=== PATIENT | male | born 1945 | race Caucasian/White ===

== ENCOUNTER 2016-12-15 08:52 | Emergency (ER) | payer MEDICARE, OTHER ==
[~2016-12-15] VITALS: Ht 172.7 cm; Wt 86.5 kg
[~2016-12-15 08:52] MED LIST: ASPI81 PO; GEMF600T PO; GLIP5 PO; LANTINJ SQ; LISI-366 PO; SYMB160A INH
[2016-12-15 09:05] VITALS: BP 144/76; PULSE 77; RESP 16; TEMP 97.7; O2SAT 94
[2016-12-15] MEDS ORDERED: ASPI1TAB69 PO (09:20)
[2016-12-15] MEDS ORDERED: LISI40TA PO (09:20)
[2016-12-15] MEDS ORDERED: GEMF600T PO (09:20)
[2016-12-15] MEDS ORDERED: LANTUS2P SQ (09:20)
[2016-12-15] MEDS ORDERED: GLIP5TAB8 PO (09:20)
[2016-12-15] MEDS ORDERED: SYMB160A INH (09:20)
--- NOTE | 2016-12-15 09:21 | PD ---
HPI Chief Complaint: Laceration/Skin Injury Time Seen by Provider: 09:16 Travel History International Travel<30 days: No Contact w/Intl Traveler<30days: No Traveled to known affect area: No History of Present Illness HPI The patient is a 71-year-old male who presents to the emergency department for laceration to the right hand. The patient states she suffered a laceration to the volar aspect of the right hand between the thumb and second digit on a square nut. The patient states the laceration bled initially, however, is currently stopped. The patient's last tetanus shot was 3 years ago after another laceration. The patient denies any weakness or numbness of the right hand. The patient is right-hand dominant. The patient denies any difficulty using the thumb or second digit of the right hand. PFSH Past Medical History Asthma: Yes Blood Disorders: No Anxiety: Yes Depression: No Cancer: No Cardiac Catheterization: Yes Cardiovascular Problems: Yes High Cholesterol: Yes Coronary Artery Disease: Yes Diabetes: Yes Diminished Hearing: Yes (MARGIE HEARING AIDS) Endocrine: Yes Genitourinary: No Hypertension: Yes Immune Disorder: No Musculoskeletal: Yes (POLIO) Neurologic: No Psychiatric: No Reproductive: No Immunizations Current: No Past Surgical History Cardiac Surgery: Yes (CABG) Coronary Artery Bypass Graft: Yes (3 VESSEL) Endocrine Surgery: Yes (TONSILECTOMY) Tonsillectomy: Yes Social History Alcohol Use: Yes (OCCASSIONAL (05/23/16)) Tobacco Use: No Substance Use: No Allergies-Medications (Allergen,Severity, Reaction): Uncoded Allergies: ACETONE (Adverse Reaction, Severe, HIVES, 10/24/12) Reported Meds & Prescriptions Reported Meds & Active Scripts Active Reported Lisinopril 40 Mg Tab 40 Mg PO DAILY Lantus Inj (Insulin Glargine) 1,000 Unit/10 Ml Vial 50 Units SQ HS Glipizide 5 Mg Tab 5 Mg PO BIDPC Take 30 minutes before a meal Gemfibrozil 600 Mg Tab 600 Mg PO BIDAC Take 30 minutes prior to breakfast and dinner. Symbicort Inh (Budesonide/Formoterol Fumarate) 160-4.5 Mcg/Act Aero 2 Puff INH BID Aspirin 81 Mg Tabdr 81 Mg PO DAILY Review of Systems Musculoskeletal: Positive: Pain Skin: Positive Other (as noted in the history of present illness) Neurologic: No: Paresthesia, Sensory Disturbance Physical Exam Narrative GENERAL: Awake, alert, pleasant 71-year-old male who appears his stated age and is in no acute respiratory distress. SKIN: Focused skin assessment warm/dry. 2.5 cm V-shaped laceration of volar aspect of the right hand between the thumb and second digit. HEAD: Atraumatic. Normocephalic. EYES: No injection or drainage. MUSCULOSKELETAL: 2.5 cm V-shaped laceration of volar aspect the right hand between the thumb and second digit. No active bleeding. No visible tendon or ligament involvement. The patient is able fully flex and extend the thumb as well as abduct abduct and oppose. The patient is able fully flex the second digit of the right hand at the MCP, PIP, DIP. Positive right radial pulse.. NEUROLOGICAL: Awake and alert. No obvious cranial nerve deficits. Motor grossly within normal limits. Normal speech. Sensation is intact to the radial and ulnar aspect of the first and second digit of the right hand. PSYCHIATRIC: Appropriate mood and affect; insight and judgment normal. Data Data Last Documented VS Vital Signs Date Time Temp Pulse Resp B/P Pulse Ox O2 Delivery O2 Flow Rate FiO2 12/15/16 09:05 97.7 77 16 144/76 94 Orders Lidocai-Epi 1%-1:100,000 Inj (Xylocaine- (12/15/16 09:30) MDM Medical Decision Making Medical Screen Exam Complete: Yes Emergency Medical Condition: Yes Medical Record Reviewed: Yes Differential Diagnosis Differential diagnosis includes laceration, puncture wound, abrasion, tendon laceration, ligament laceration. Narrative Course The patient's tetanus shot is up-to-date per the patient 3 years ago. The patient's laceration was draped and prepped in a normal sterile fashion, anesthetized 1% lidocaine with epinephrine using a 27-gauge needle, irrigated copiously with saline, and sutured in a single layer fashion. The patient then had Polysporin and a dry sterile dressing applied. The patient was provided wound care instructions including clean the area twice a day with soap and water , apply Polysporin, and keep the area clean and dry. Keflex as directed. Suture removal in 10 days. Monitor for signs of infection return sooner if symptoms appear including erythema, edema, purulent drainage, or fever. Procedures Procedure Narrative LACERATION LOCATION: Right hand LENGTH: 2.5 cm NUMBER OF STITCHES/OLMAN: 5 REPAIR: The area of the laceration was prepped with Betadine and sterilely draped. The laceration was infiltrated with 1% lidocaine with epinephrine using a 27-gauge needle. The wound was copiously irrigated and explored without evidence of foreign body, tendon injury or neurovascular injury. The wound was closed using 4-0 nylon. This was a single layer repair. A sterile dressing was applied. The patient was advised to keep the dressing clean and dry. Patient tolerated the procedure well. Diagnosis Primary Impression: Laceration of right hand Qualified Code: S61.411A - Laceration of right hand without foreign body, initial encounter Patient Instructions: General Instructions Additional Instructions: Sutures removed in 10 days. Monitor for signs of infection. Keflex as directed. Clean the area twice a day with soap and water, apply Polysporin, return if symptoms of infection appear. Med/Other Pt SpecificInfo: Prescription(s) given Scripts Cephalexin (Keflex)500 Mg [id number] Mg PO Q6H 5 Days Ref 0 Prov:Aric Prado MD 12/15/16 Disposition: DISCHARGE HOME Condition: Stable Aric Prado MD Dec 15, 2016 09:21
[2016-12-15] MEDS ORDERED: LIDOCAINE 1%/EPINEPHrine 1:100,000 SOLN 20 ML VIAL INFIL ONE (09:30)
[2016-12-15] MEDS ORDERED: CEPH-460 PO (09:37)
== END 2016-12-15 09:50 | disposition home or self-care (01) ==
LOC: PHEFT 08:52
DX: S61.411A Laceration without foreign body of right hand, initial encounter (principal); J45.909 Unspecified asthma, uncomplicated; E78.00 Pure hypercholesterolemia, unspecified; E11.9 Type 2 diabetes mellitus without complications; I10 Essential (primary) hypertension; I25.10 Atherosclerotic heart disease of native coronary artery without angina pectoris; Z86.12 Personal history of poliomyelitis; Z95.1 Presence of aortocoronary bypass graft
CPT/HCPCS: 12001

== ENCOUNTER 2017-01-06 15:35 | Emergency (ER) | payer MEDICARE, OTHER ==
[~2017-01-06] VITALS: Ht 172.7 cm; Wt 85.0 kg
[~2017-01-06 15:35] MED LIST changes: +ASPI1TAB69 PO; -ASPI81 PO; +CEPH-460 PO; -GLIP5 PO; +GLIP5TAB8 PO; -LANTINJ SQ; +LANTUS2P SQ; -LISI-366 PO; +LISI40TA PO
[2017-01-06 15:37] VITALS: BP 125/69; PULSE 86; RESP 18; TEMP 97.5; O2SAT 97
--- NOTE | 2017-01-06 15:49 | PD ---
HPI Chief Complaint: Injury Time Seen by Provider: 15:49 Travel History International Travel<30 days: No Contact w/Intl Traveler<30days: No Traveled to known affect area: No History of Present Illness HPI 71-year-old male with history of hypertension, hyperlipidemia, diabetes, CAD status post CABG presents to the emergency department for evaluation of left ankle injury. Patient states that he was working on his deck, using an electric saw when his left ankle became entangled in the cord causing him to fall off of the deck about 3 feet. States that when he fell and caused his left ankle to Hyperflex and he has had swelling and pain in this ankle since this occurred. Unable to bear weight on the left ankle. States that when he landed he caught himself with his hands, denies head trauma or loss of consciousness. The only pain he is experiencing is in his left ankle. He denies any headache, lightheadedness, dizziness, nausea, vomiting, numbness or tingling, weakness. Denies any prior injury or trauma to this ankle. Denies any anticoagulation. No other complaints. PFSH Past Medical History Hx Anticoagulant Therapy: Yes (ASA) Asthma: Yes Blood Disorders: No Anxiety: Yes Depression: No Cancer: No Cardiac Catheterization: Yes Cardiovascular Problems: Yes High Cholesterol: Yes Coronary Artery Disease: Yes Diabetes: Yes Diminished Hearing: Yes (MARGIE HEARING AIDS) Endocrine: Yes Genitourinary: No Hypertension: Yes Immune Disorder: No Musculoskeletal: Yes (POLIO) Neurologic: No Psychiatric: No Reproductive: No Respiratory: Yes (ASTHMA COPD) Immunizations Current: No Past Surgical History Cardiac Surgery: Yes (CABG) Coronary Artery Bypass Graft: Yes (3 VESSEL) Endocrine Surgery: Yes (TONSILECTOMY) Pacemaker: Yes (Biotronik; Itrevia 7 VR-T DX, Linox Smart S DX 65/15) Tonsillectomy: Yes Social History Alcohol Use: Yes (beer, occasionally (12/15/16)) Tobacco Use: No (quit 20 years ago (12/15/16)) Substance Use: No Allergies-Medications (Allergen,Severity, Reaction): Uncoded Allergies: ACETONE (Adverse Reaction, Severe, HIVES, 10/24/12) Reported Meds & Prescriptions Reported Meds & Active Scripts Active Reported Lisinopril 40 Mg Tab 40 Mg PO DAILY Lantus Inj (Insulin Glargine) 1,000 Unit/10 Ml Vial 50 Units SQ HS Glipizide 5 Mg Tab 5 Mg PO BIDPC Take 30 minutes before a meal Gemfibrozil 600 Mg Tab 600 Mg PO BIDAC Take 30 minutes prior to breakfast and dinner. Symbicort Inh (Budesonide/Formoterol Fumarate) 160-4.5 Mcg/Act Aero 2 Puff INH BID Aspirin 81 Mg Tabdr 81 Mg PO DAILY Review of Systems Except as stated in HPI: all other systems reviewed are Neg Physical Exam Narrative GENERAL: Well-nourished and well-developed pleasant male patient in no acute distress who is nontoxic appearing. SKIN: Warm and dry. HEAD: Normocephalic and atraumatic. No bony point tenderness or crepitus noted throughout the sinuses. EYES: No injection, drainage, or hyphema noted. PERRLA. EOMI. ENT: No nasal drainage noted. Oropharynx is clear and the TMs are normal with good landmarks. NECK: Supple and the trachea is midline. No midline cervical spine tenderness to palpation. Full range of motion. CARDIOVASCULAR: Regular rate and rhythm. RESPIRATORY: Breath sounds are equal bilaterally with no accessory muscle use, wheezing, rhonchi, or crackles. GASTROINTESTINAL: Abdomen is soft, non-tender, and nondistended. EXTREMITY: The left ankle is swollen and tender over the lateral and medial aspect but the skin is intact and there is no ligamentous instability. There is no deformity. The foot and toes are warm and well-perfused. Sensation to pain and light touch is intact. Normal Hurd's test. MUSCULOSKELETAL: No obvious deformities, swelling, cyanosis, or ecchymosis is present throughout the upper and lower extremities. Patient has full range of motion without any signs of neurovascular compromise. NEUROLOGICAL: Awake, alert, and oriented. Normal speech and gait. Cranial nerves are grossly intact. Data Data Last Documented VS Vital Signs Date Time Temp Pulse Resp B/P Pulse Ox O2 Delivery O2 Flow Rate FiO2 01/06/17 15:37 97.5 86 18 125/69 97 Orders Ankle, Complete ([id number]) (01/06/17 15:49) Ice/Cold Pack (01/06/17 15:49) Acetamin-Hydrocod 325-5 Mg ([place] 5-325 (01/06/17 16:45) Splint Or Brace Apply/Monitor (01/06/17 16:40) Crutches (01/06/17 16:40) [facility] Medical Decision Making Medical Screen Exam Complete: Yes Emergency Medical Condition: Yes Differential Diagnosis Fracture versus contusion versus sprain Narrative Course 71-year-old male presents to the emergency department for evaluation of left ankle injury that occurred secondary to mechanical fall and twisting left ankle. Patient is afebrile, vital signs are stable. No head trauma or loss of consciousness. Patient does have some swelling and pain to the left ankle. Left lower extremity is neurovascularly intact. X-ray imaging is been ordered and is pending. X-ray of the left ankle shows a nondisplaced distal tibia fracture. The ankle mortise is intact. The patient is placed in a left Wade splint. He'll be given crutches for ambulation. Instructed on nonweightbearing. Instructed to follow-up with an orthopedist in the next 1-2 weeks. He'll be discharged with pain medication. Patient verbalizes understanding and agreement with treatment plan. Diagnosis Primary Impression: Closed left ankle fracture Qualified Code: S82.892A - Closed left ankle fracture, initial encounter Referrals: Michael Shell MD Orthopaedic Surgeon Patient Instructions: General Instructions Additional Instructions: Splint. Use crutches for ambulation. Do not bear weight on the left foot. Elevate left foot. Apply ice for 20 minutes on, 20 minutes off. Take medication as prescribed with food and a full glass of water. Do not take Lortab with alcohol or while driving. Follow-up with Dr. Shell or another orthopedic surgeon. Return to the ED for any acute worsening of symptoms. Med/Other Pt SpecificInfo: Prescription(s) given Disposition: 01 DISCHARGE HOME Condition: Stable Holly Peralta January 06, 2017 15:49
[2017-01-06] MEDS ORDERED: ACETAMINOPHEN/HYDROcodone 325 MG/5 MG TAB PO ONE (16:45)
[2017-01-06] MEDS ORDERED: HYDR-3533 PO (17:09)
--- NOTE | 2017-01-06 17:21 | RADHPO ---
EXAM DATE/TIME: 01/06/2017 16:08 [facility] COMPARISON: No previous studies available for comparison. INDICATIONS : Patient fell off of a deck today and twisted his ankle. Pain is in the medial malleolus area. MEDICAL HISTORY : Diabetes mellitus type II. SURGICAL HISTORY : CABG. ENCOUNTER: Initial ACUITY: 1 day PAIN SCORE: 10/10 LOCATION: Left Medial ankle. FINDINGS: 3 views of the left ankle reveal an acute fracture involving medial malleolus. 7 mm of separation of the fracture fragments. The remaining bony structures are intact. Ankle mortise is preserved. Atheros clerotic changes noted. CONCLUSION: Acute medial malleolar fracture. Austyn Song Jr., MD on January 06, 2017 at 16:20 Board Certified Radiologist. This report was verified electronically.
[2017-01-06 17:40] VITALS: RESP 18
== END 2017-01-06 17:45 | disposition home or self-care (01) ==
LOC: PHEFT 15:35
DX: S82.302A Unspecified fracture of lower end of left tibia, initial encounter for closed fracture (principal); W17.89XA Other fall from one level to another, initial encounter; Y93.H9 Activity, other involving exterior property and land maintenance, building and construction; Y92.007 Garden or yard of unspecified non-institutional (private) residence as the place of occurrence of the external cause
CPT/HCPCS: 73610; 99283; E0113

== ENCOUNTER 2017-02-16 17:30 | Emergency (ER) | payer MEDICARE, MEDICAID ==
[~2017-02-16] VITALS: Ht 172.7 cm; Wt 86.5 kg
[~2017-02-16 17:30] MED LIST changes: -CEPH-460 PO; +HYDR-3533 PO
[2017-02-16 17:44] VITALS: BP 128/74; PULSE 87; RESP 16; TEMP 97.9; O2SAT 93
[2017-02-16] MEDS ORDERED: ASPI81TA11 PO (18:03)
--- NOTE | 2017-02-16 18:55 | PD ---
HPI Chief Complaint: Musculoskeletal Complaint Time Seen by Provider: 18:20 Travel History International Travel<30 days: No Contact w/Intl Traveler<30days: No Traveled to known affect area: No History of Present Illness HPI 71 year-old male presents to the emergency room for reimaging of his left ankle. Patient broke his ankle 6 weeks ago. He came to the emergency room and had it splinted. He called his primary care physician for referral to see an orthopedic surgeon and they told him that the orthopedic surgeons are too busy to get him in. He called his primary care physician this morning again to obtain a follow-up appointment at which time they recommended that he come to the emergency room for reevaluation/imaging. Patient has not been taking anything for pain. He states he cannot apply ice because his skin is extremely sensitive. He reports chronic neuropathy but worsening of symptoms since he broke his ankle. Pain is so severe he can only get 1-2 hours of sleep at a time at night. He took his splint off a few days ago. Patient can ambulate with crutches and a limp. Reports most of his pain is on bilateral malleoli. PFSH Past Medical History Hx Anticoagulant Therapy: Yes (ASA) Asthma: Yes Blood Disorders: No Anxiety: Yes Depression: No Cancer: No Cardiac Catheterization: Yes Cardiovascular Problems: Yes High Cholesterol: Yes Coronary Artery Disease: Yes Diabetes: Yes Patient Takes Glucophage: Yes Diminished Hearing: Yes (MARGIE HEARING AIDS) Endocrine: Yes Genitourinary: No Hypertension: Yes Immune Disorder: No Musculoskeletal: Yes (POLIO) Neurologic: No Psychiatric: No Reproductive: No Respiratory: Yes (ASTHMA COPD) Immunizations Current: No Tetanus Vaccination: < 5 Years Influenza Vaccination: No Past Surgical History Cardiac Surgery: Yes (CABG) Coronary Artery Bypass Graft: Yes (3 VESSEL) Endocrine Surgery: Yes (TONSILECTOMY) Pacemaker: Yes (Biotronik; Itrevia 7 VR-T DX, Linox Smart S DX 65/15) Tonsillectomy: Yes Social History Alcohol Use: Yes (socially mix drinks or beer) Tobacco Use: No (quit 20 yrs ago . smoked 1- 2 ppd ) Substance Use: No Allergies-Medications (Allergen,Severity, Reaction): Uncoded Allergies: ACETONE (Adverse Reaction, Severe, HIVES, 10/24/12) Reported Meds & Prescriptions Reported Meds & Active Scripts Active Reported Aspirin EC (Aspirin) 81 Mg Tabdr 81 Mg PO DAILY Lisinopril 40 Mg Tab 40 Mg PO DAILY Lantus Inj (Insulin Glargine) 1,000 Unit/10 Ml Vial 50 Units SQ HS Glipizide 5 Mg Tab 5 Mg PO BIDPC Take 30 minutes before a meal Gemfibrozil 600 Mg Tab 600 Mg PO BIDAC Take 30 minutes prior to breakfast and dinner. Symbicort Inh (Budesonide/Formoterol Fumarate) 160-4.5 Mcg/Act Aero 2 Puff INH BID Review of Systems Except as stated in HPI: all other systems reviewed are Neg Physical Exam Narrative GENERAL: Well-nourished, well-developed male in no acute distress. Afebrile. Ambulatory with crutches. SKIN: Focused skin assessment warm/dry. No erythema or ecchymosis. HEAD: Normocephalic. EYES: No scleral icterus. No injection or drainage. NECK: Supple, trachea midline. No JVD or lymphadenopathy. CARDIOVASCULAR: Regular rate and rhythm without murmurs, gallops, or rubs. RESPIRATORY: Breath sounds equal bilaterally. No accessory muscle use. EXTREMITY: Right ankle tender to palpation over bilateral malleoli. Full range of motion of the foot, limited range of motion of the ankle. No significant edema. 2+ dorsalis pedis pulse. Compartments soft. Data Data Last Documented VS Vital Signs Date Time Temp Pulse Resp B/P Pulse Ox O2 Delivery O2 Flow Rate FiO2 02/16/17 17:58 16 02/16/17 17:44 97.9 87 128/74 93 Orders Ankle, Complete ([id number]) (02/16/17 ) Splint Or Brace Apply/Monitor (02/16/17 19:22) [facility] Medical Decision Making Medical Screen Exam Complete: Yes Emergency Medical Condition: Yes Medical Record Reviewed: Yes Differential Diagnosis Fracture, contusion, malunion Narrative Course 71-year-old male presents to the emergency room for reevaluation/imaging of his right ankle. He broke his ankle 6 weeks ago and was told to follow-up with an orthopedic surgeon. Patient has been unable to follow up because the surgeons in the area are too busy to see him. He called his primary care physician today for follow-up and they recommended he come to the emergency room. Right lower extremity is neurovascularly intact with 2+ dorsalis pedis pulse. He has extreme tenderness palpation of bilateral malleoli. Compartments are soft. X- ray shows minimal healing. Wade splint reapplied. Patient discharged with instructions to follow up with orthopedic surgeon as soon as possible or return for worsening symptoms. He understands and agrees to plan. Diagnosis Primary Impression: Closed left ankle fracture Qualified Code: S82.892G - Closed left ankle fracture, with delayed healing, subsequent encounter Referrals: Primary Care Physician Patient Instructions: Ankle Fracture (ED), General Instructions Additional Instructions: Rest and drink plenty of fluids. Lortab as directed, as needed for pain. Do not drink alcohol or drive taking this medication. Take ibuprofen with food as directed, as needed for pain. Keep in splint. Elevate and apply ice as much as possible. Follow-up with an orthopedic surgeon. Return to the emergency room for worsening symptoms. Med/Other Pt SpecificInfo: Prescription(s) given Scripts Hydrocodone-Acetaminophen (Lortab)5-325 Mg Tab1 Tab PO Q6H PRN (PAIN) #12 TAB Ref 0 Prov:Mary Pendleton MD 02/16/17 Disposition: 01 DISCHARGE HOME Condition: Stable Lupe Martinez Feb 16, 2017 18:55
--- NOTE | 2017-02-16 19:07 | RADHPO ---
EXAM DATE/TIME: 02/16/2017 18:40 [facility] COMPARISON: ANKLE LEFT COMPLETE ([id number]), January 06, 2017, 16:08. INDICATIONS : Follow up left ankle injury 6 weeks ago. MEDICAL HISTORY : Diabetes mellitus type II. SURGICAL HISTORY : CABG. ENCOUNTER: [facility] ACUITY: 1 month PAIN SCORE: 5/10 LOCATION: Left medial ankle FINDINGS: Mildly displaced subacute fracture of the medial malleolus again noted without perceptible bony bridg ing. Some faint callus formation seen at the fracture periphery but not bridging. Alignment is unchan ged. CONCLUSION: Minimal healing of the medial malleolus fracture. Alignment is not significantly changed. Christopher Blevins MD on February 16, 2017 at 19:04 Board Certified Radiologist. This report was verified electronically.
[2017-02-16] MEDS ORDERED: HYDR-3533 PO ×2 (19:25→19:26)
== END 2017-02-16 20:29 | disposition home or self-care (01) ==
LOC: PHEFT 17:30
DX: S82.55XG Nondisplaced fracture of medial malleolus of left tibia, subsequent encounter for closed fracture with delayed healing (principal); J45.909 Unspecified asthma, uncomplicated; E78.00 Pure hypercholesterolemia, unspecified; I25.10 Atherosclerotic heart disease of native coronary artery without angina pectoris; E11.9 Type 2 diabetes mellitus without complications; I10 Essential (primary) hypertension; Z87.891 Personal history of nicotine dependence; Z79.01 Long term (current) use of anticoagulants
CPT/HCPCS: 29515; 73610; 99283; E0113

== ENCOUNTER 2017-04-05 15:26 | Observation (INO) | payer MEDICARE, OTHER ==
[~2017-04-05] VITALS: Ht 172.7 cm; Wt 85.0 kg
[~2017-04-05 15:26] MED LIST changes: -ASPI1TAB69 PO; +ASPI81TA11 PO
[2017-04-05 15:39] VITALS: BP 180/78; PULSE 96; RESP 18; TEMP 97.8; O2SAT 96
[2017-04-05] MEDS ORDERED: SODIUM CHLORIDE 0.9% FLUSH 10 ML FLUSH IVF PRN (15:45)
[2017-04-05] MEDS ORDERED: VANCOMYCIN INJ 1,300 MG in SODIUM CHLORID 0.9% 500 ML INJ 500 ML IV ONE (15:45)
[2017-04-05] MEDS ORDERED: [UNRECOGNIZED DRUG - OTHER] (15:47)
[2017-04-05 15:49] VITALS: RESP 18; O2SAT 98
--- NOTE | 2017-04-05 15:53 | PD ---
HPI Chief Complaint: Chest Pain Time Seen by Provider: 15:37 Travel History International Travel<30 days: No Contact w/Intl Traveler<30days: No Traveled to known affect area: No History of Present Illness HPI 71yo M with PMH of DM, HTN, CHF s/p defibrillator, CAD s/p CABG presents to the ED with c/o chest pressure and sob for an hour. States he was chasing his dog when it happened and it was midsternal. States the pain has subsided on its own. Denies any fever, n/v, abdominal pain, focal weakness or numbness. On physical exam, I noticed redness, swelling in left medial malleolus and when I asked him, he states he just noticed that today. He said he had surgery in left ankle by Dr. Nguyễn 2 weeks ago at [facility] and followed up last week and everything was fine. Pt's mechanical design technician is Dr. Ward and he stated that he cant have a stress test because of his COPD. PFSH Past Medical History Hx Anticoagulant Therapy: Yes (BABY ASA DAILY) Asthma: Yes Blood Disorders: No Anxiety: Yes Depression: No Cancer: No Cardiac Catheterization: Yes Cardiovascular Problems: Yes (QUAD BYPASS, HTN, CHOL) High Cholesterol: Yes Coronary Artery Disease: Yes Diabetes: Yes Patient Takes Glucophage: Yes Diminished Hearing: Yes (MARGIE HEARING AIDS) Endocrine: Yes Genitourinary: No Hypertension: Yes Immune Disorder: No Implanted Vascular Access Dvce: No Musculoskeletal: Yes (POLIO) Neurologic: No Psychiatric: No Reproductive: No Respiratory: Yes (COPD) Immunizations Current: No Tetanus Vaccination: < 5 Years Past Surgical History Cardiac Surgery: Yes (CABG) Coronary Artery Bypass Graft: Yes (4 VESSEL) Endocrine Surgery: Yes (TONSILECTOMY) Oral Surgery: Yes (LEFT ANKLE SX) Pacemaker: Yes (Biotronik; Itrevia 7 VR-T DX, Linox Smart S DX 65/15) Tonsillectomy: Yes Social History Alcohol Use: Yes (socially mix drinks or beer) Tobacco Use: No (quit 20 yrs ago . smoked 1- 2 ppd ) Substance Use: No Allergies-Medications (Allergen,Severity, Reaction): Uncoded Allergies: ACETONE (Adverse Reaction, Severe, HIVES, 10/24/12) Reported Meds & Prescriptions Reported Meds & Active Scripts Active Acetaminophen Extra Strength Liq (Acetaminophen) 500 Mg/15 Ml Soln 500 Mg PO Q6HR PRN Bactrim DS (Sulfamethoxazole-Trimethoprim) 800-160 Mg Tab 1 Tab PO BID Reported [Kidney/Prostrate ] Aspirin EC (Aspirin) 81 Mg Tabdr 81 Mg PO DAILY Lisinopril 40 Mg Tab 40 Mg PO DAILY Lantus Inj (Insulin Glargine) 1,000 Unit/10 Ml Vial 50 Units SQ HS Glipizide 5 Mg Tab 5 Mg PO BIDPC Take 30 minutes before a meal Gemfibrozil 600 Mg Tab 600 Mg PO BIDAC Take 30 minutes prior to breakfast and dinner. Symbicort Inh (Budesonide/Formoterol Fumarate) 160-4.5 Mcg/Act Aero 2 Puff INH BID Review of Systems Except as stated in HPI: all other systems reviewed are Neg Physical Exam Narrative GENERAL: 71yo M in mild distress. SKIN: Focused skin assessment warm/dry. HEAD: Atraumatic. Normocephalic. NECK: Trachea midline. No JVD. CARDIOVASCULAR: Regular rate and rhythm. No murmur appreciated. RESPIRATORY: No accessory muscle use. Clear to auscultation. Breath sounds equal bilaterally. GASTROINTESTINAL: Abdomen soft, non-tender, nondistended. No rebound tenderness or guarding. MUSCULOSKELETAL: Left ankle: +Erythema and edema 6cm by 6cm in medial malleolus. +clear drainage. DP 1+. NEUROLOGICAL: Awake and alert. No obvious cranial nerve deficits. Motor grossly within normal limits. Normal speech. PSYCHIATRIC: Appropriate mood and affect; insight and judgment normal. Data Data Last Documented VS Vital Signs Date Time Temp Pulse Resp B/P Pulse Ox O2 Delivery O2 Flow Rate FiO2 04/05/17 16:32 84 18 149/73 96 Nasal Cannula 2 150/70 04/05/17 15:39 97.8 Orders Basic Metabolic Panel (Bmp) (04/05/17 15:45) Ckmb (Isoenzyme) Profile (04/05/17 15:45) Complete Blood Count With Diff (04/05/17 15:45) Magnesium (Mg) (04/05/17 15:45) Prothrombin Time / Inr (Pt) (04/05/17 15:45) Act Partial Throm Time (Ptt) (04/05/17 15:45) Troponin I (04/05/17 15:45) Chest, Single Ap (04/05/17 15:45) Ecg Monitoring (04/05/17 15:45) Bilateral Bp Monitoring (04/05/17 15:45) Iv Access Insert/Monitor (04/05/17 15:45) Oximetry (04/05/17 15:45) Oxygen Administration (04/05/17 15:45) Sodium Chloride 0.9% Flush (Ns Flush) (04/05/17 15:45) Ankle, Limited (Ap&Lat) (04/05/17 ) Blood Culture (04/05/17 15:45) Lactic Acid Sepsis Protocol (04/05/17 15:45) Vancomycin Inj (Vancomycin Inj) (04/05/17 15:45) Westergren Sedimentation Rate (04/05/17 15:53) C-Reactive Protein (Crp) (04/05/17 15:53) CKMB (04/05/17 15:50) CKMB% (04/05/17 15:50) Sodium Chlorid 0.9% 500 Ml Inj (Ns 500 M (04/05/17 17:00) B-Type Natriuretic Peptide (04/05/17 16:56) Wound Culture And Gram Stain (04/05/17 17:01) Splint Or Brace Apply/Monitor (04/05/17 17:05) Aspirin Ec (Ecotrin Ec) (04/06/17 09:00) Budeson-Formot 160-4.5 Mg Inh (Symbicort (04/05/17 21:00) Gemfibrozil (Lopid) (04/06/17 07:00) Admit Order (Ed Use Only) (04/05/17 17:24) Labs Laboratory Tests Test 04/05/17 04/05/17 15:50 15:55 White Blood Count 7.2 TH/MM3 Red Blood Count 4.64 MIL/MM3 Hemoglobin 13.2 GM/DL Hematocrit 39.8 % Mean Corpuscular Volume 85.7 FL Mean Corpuscular Hemoglobin 28.4 PG Mean Corpuscular Hemoglobin 33.1 % Concent Red Cell Distribution Width 15.6 % Platelet Count 178 TH/MM3 Mean Platelet Volume 11.3 FL Neutrophils (%) (Auto) 69.0 % Lymphocytes (%) (Auto) 17.8 % Monocytes (%) (Auto) 10.6 % Eosinophils (%) (Auto) 2.3 % Basophils (%) (Auto) 0.3 % Neutrophils # (Auto) 4.9 TH/MM3 Lymphocytes # (Auto) 1.3 TH/MM3 Monocytes # (Auto) 0.8 TH/MM3 Eosinophils # (Auto) 0.2 TH/MM3 Basophils # (Auto) 0.0 TH/MM3 CBC Comment AUTO DIFF Differential Comment AUTO DIFF CONFIRMED Platelet Estimate NORMAL Platelet Morphology Comment GIANT Erythrocyte Sedimentation Rate 31 mm/hr Prothrombin Time 10.4 SEC Prothromb Time International 0.9 RATIO Ratio Activated Partial 26.6 SEC Thromboplast Time Sodium Level 138 MEQ/L Potassium Level 4.3 MEQ/L Chloride Level 100 MEQ/L Carbon Dioxide Level 26.2 MEQ/L Anion Gap 12 MEQ/L Blood Urea Nitrogen 51 MG/DL Creatinine 2.80 MG/DL Estimat Glomerular Filtration 23 ML/MIN Rate Random Glucose 293 MG/DL Lactic Acid Level 2.6 mmol/L Calcium Level 9.2 MG/DL Magnesium Level 2.1 MG/DL Total Creatine Kinase 429 U/L Creatine Kinase MB 10.0 NG/ML Creatine Kinase MB % 2.3 % Troponin I 0.03 NG/ML C-Reactive Protein 6.51 MG/DL B-Type Natriuretic Peptide 189 PG/ML MDM Medical Decision Making Medical Screen Exam Complete: Yes Emergency Medical Condition: Yes Interpretation(s) EKG: Sinus tachycardia at 101bpm. Normal axis. Q wave III, aVF. ST depression V4-V6. Differential Diagnosis ACS vs. Pneumonia vs. COPD exacerbation Cellulitis vs. osteomyelitis vs. infection of hardware Narrative Course 71yo M with chest pressure and sob while running after his dog today. Symptoms lasted about an hour. On examination, pt found to have redness and swelling with clear discharge over left medial malleolus. He states he had recent surgery by Dr. Nguyễn. Labs reviewed, no leukocytosis. ESR elevated at 31. Lactic acid mildly elevated at 2.6. BUN/creatinine mildly elevated from baseline. Pt given vancomycin IV. CXR showed no acute abnormality. Xray left ankle showed status post lag screw fixation of left medial malleolar fracture. I discussed with Dr. Nguyễn and he states that pt can follow up with his office tomorrow or and be discharged with PO antibiotics. Pt is suppose to be in an aircast but has not gotten it yet. He recommends putting pt in left posterior splint and doing wound culture. I am still concern with the chest pressure because of pt's risk factors so will admit for serial EKG and cardiac enzyme. Discussed with Dr. Kelly and initially accepted to his service for chest pain center but after discussion, decided to admit pt to regular observation instead with [facility] hospitalist. But pt is now refusing admission. Pt reevaluated at bedside and has refused left posterior splint. States he does not like it and his air cast is coming tomorrow. Pt is also refusing admission and signing out against medical advice. States he has no chest pain and wants to go home. AMA: The risks of leaving against medical advice without further evaluation treatment were discussed with the patient. These risks include cardiac dysfunction, cardiac dysrhythmia, possible heart attack, possible stroke or . The patient indicated understanding of these risks and appeared to have the capacity to make this decision. Diagnosis Primary Impression: Chest pain Qualified Code: R07.9 - Chest pain, unspecified type Additional Impression: Infection of joint of ankle Patient Instructions: General Instructions Departure Forms: Tests/Procedures Additional Instructions: Please follow up with your orthopedic surgeon tomorrow. Return to the ED if you change your mind. Med/Other Pt SpecificInfo: Prescription(s) given Scripts Acetaminophen Liq (Acetaminophen Extra Strength Liq)500 Mg/15 Ml Xsit070 Mg PO Q6HR PRN (PAIN SCALE 1 TO 4) #20 ML Ref 0 Prov:DestiniLizbeth DO 04/05/17 Sulfamethoxazole-Trimethoprim (Bactrim DS)800-160 Mg Tab1 Tab PO BID #14 TAB Ref 0 Prov:Lizbeth Georges DO 04/05/17 Disposition: 07 AGAINST MEDICAL ADVICE Condition: Stable Lizbeth Georges DO Apr 05, 2017 15:53
[2017-04-05 16:15] LABS: POTASSIUM 4.3 MEQ/L (3.5-5.1)
[2017-04-05 16:18] LABS: BICARBONATE 26.2 MEQ/L (21.0-32.0); MAGNESIUM 2.1 MG/DL (1.5-2.5)
[2017-04-05 16:27] LABS: APTT (PATIENT) 26.6 SEC (24.3-30.1); INTERNATIONAL NORMALIZED RATIO 0.9 RATIO; PROTHROMBIN TIME - PATIENT 10.4 SEC (9.8-11.6)
[2017-04-05 16:32] VITALS: BP_SYST 149; BP_SYST 150; BP_DIAS 70; BP_DIAS 73; PULSE 84; RESP 18; O2SAT 96
[2017-04-05 16:32] LABS: AUTOMATED NEUTROPHIL # 4.9 TH/MM3 (1.8-7.7); BASOPHIL % 0.3 % (0.0-2.0); EOSINOPHIL # 0.2 TH/MM3 (0-0.4); EOSINOPHIL % 2.3 % (0.0-4.0); HEMATOCRIT 39.8 % (39.0-51.0); LYMPH % 17.8 % (9.0-44.0); LYMPHOCYTE # 1.3 TH/MM3 (1.0-4.8); MEAN CELL VOLUME 85.7 FL (80.0-100.0); MEAN CORPUSCULAR HEMOGLOBIN 28.4 PG (27.0-34.0); MEAN CORPUSCULAR HGB CONC 33.1 % (32.0-36.0); MONO % 10.6 % (0.0-8.0); PLATELET COUNT 178 TH/MM3 (150-450); RED BLOOD COUNT 4.64 MIL/MM3 (4.50-5.90); RED CELL DISTRIBUTION WIDTH 15.6 % (11.6-17.2); WHITE BLOOD COUNT 7.2 TH/MM3 (4.0-11.0)
[2017-04-05 16:37] LABS: HEMO FLAGS AUTO DIFF
--- NOTE | 2017-04-05 16:54 | RADRPT ---
EXAM DATE/TIME: 04/05/2017 16:15 [facility] COMPARISON: ANKLE LEFT COMPLETE ([id number]), February 16, 2017, 18:40. INDICATIONS : Left ankle pain from injury 3 weeks ago. MEDICAL HISTORY : None. SURGICAL HISTORY : ORIF left ankle. ENCOUNTER: Initial ACUITY: 3 weeks PAIN SCORE: 7/10 LOCATION: Left Ankle FINDINGS: Interval screw fixation of medial malleolus fracture. The cephalad margin of the screw traverses the anterior cortex. No associated lucency. Alignment is maintained. Joint spaces are maintained. Minimal interval remodeling without significant callus formation. There is heterotopic ossification in the a djacent soft tissues. Remainder of exam is unchanged. CONCLUSION: 1. Status post single lag screw fixation of left medial malleolar fracture, as above. Shaheed Taveras MD on April 05, 2017 at 16:47 Board Certified Radiologist. This report was verified electronically.
--- NOTE | 2017-04-05 16:56 | RADRPT ---
EXAM DATE/TIME: 04/05/2017 16:19 [facility] COMPARISON: CHEST SINGLE AP, May 24, 2016, 9:34. INDICATIONS : Short of breath. MEDICAL HISTORY : Chronic obstructive pulmonary disease. Hypertension Diabetes mellitus type II. Asthma. SURGICAL HISTORY : Pacemaker. CABG. ENCOUNTER: Initial ACUITY: 1 day PAIN SCORE: 0/10 LOCATION: Bilateral chest FINDINGS: Median sternotomy wires. Interval placement of single lead pacemaker with lead projecting over the ri ght ventricle. No new focal pleural or parenchymal opacities. Cardiomediastinal contours are stable. Remainder of the exam is unchanged. CONCLUSION: 1. No acute abnormality or significant interval change. Shaheed Taveras MD on April 05, 2017 at 16:53 Board Certified Radiologist. This report was verified electronically.
[2017-04-05] MEDS ORDERED: SODIUM CHLORID 0.9% 500 ML INJ 500 ML IV ONE (17:00)
[2017-04-05 17:11] LABS: PLATELET ESTIMATE SMEAR NORMAL (NORMAL); PLATELET MORPHOLOGY GIANT (NORMAL); SCAN/DIFF AUTO DIFF CONFIRMED
[2017-04-05 18:01] LABS: LACTIC ACID GHOST NOT REPORTABLE
[2017-04-05] MEDS ORDERED: BACT800T5 PO (18:15)
[2017-04-05] MEDS ORDERED: ACET500L PO (18:16)
[2017-04-05 18:32] VITALS: BP 179/86
[2017-04-05] MEDS ORDERED: BUDESONIDE-FORMOTEROL 160/4.5 MCG INHALER INH SCH (21:00)
[2017-04-06] MEDS ORDERED: GEMFIBROZIL 600 MG TAB PO SCH (07:00)
[2017-04-06] MEDS ORDERED: ASPIRIN EC 81 MG TABEC PO SCH (09:00)
--- NOTE | 2017-04-06 10:56 | EKG ---
Date Performed: 04/05/2017 Time Performed: 15:34:14 PTAGE: 71 years EKG: SINUS TACHYCARDIA NONSPECIFIC ST & T-WAVE ABNORMALITY ABNORMAL RHYTHM ECG INTERPRETATION BA SED ON A DEFAULT AGE OF 40 YEARS NO PREVIOUS TRACING DOCTOR: Doroteo Castillo Interpretating Date/Time 04/06/2017 10:55:56
== END 2017-04-05 18:40 | disposition left against medical advice (07) ==
LOC: PHED 15:26 → PHEDA 17:25
PROVIDERS: ADMIT Hospitalist; ATTEND Hospitalist
DX: R07.89 Other chest pain (principal); R06.02 Shortness of breath; E11.9 Type 2 diabetes mellitus without complications; I25.10 Atherosclerotic heart disease of native coronary artery without angina pectoris; I11.0 Hypertensive heart disease with heart failure; Z95.810 Presence of automatic (implantable) cardiac defibrillator; Z95.1 Presence of aortocoronary bypass graft; J44.9 Chronic obstructive pulmonary disease, unspecified; E78.00 Pure hypercholesterolemia, unspecified; F41.9 Anxiety disorder, unspecified; M25.572 Pain in left ankle and joints of left foot; R94.31 Abnormal electrocardiogram [ECG] [EKG]; Z79.82 Long term (current) use of aspirin; Z79.899 Other long term (current) drug therapy; Z87.891 Personal history of nicotine dependence; Z79.4 Long term (current) use of insulin; Z53.21 Procedure and treatment not carried out due to patient leaving prior to being seen by health care provider
CPT/HCPCS: 71010; 73600; 80048; 82550; 82552; 83605; 83735; 83880; 84484; 85025; 85610; 85652; 85730; 86140; 86403; 87040; 87070; 87077; 87186; 87205; 93005; 96365; 96366; 99285; G0378; J3370; J7040

== ENCOUNTER 2018-08-16 05:56 | Inpatient (IN) ==
[2018-08-16] MEDS ORDERED: Protamine Sulfate Inj 50 MG/5 ML Vial ONE (06:03)
[2018-08-16] MEDS ORDERED: Heparin 10,000 UNITS/10 ML Vial (for IV use) ONE ×2 (06:03→09:27)
[2018-08-16] MEDS ORDERED: Thrombin Topical 20,000 UNIT Spray Kit TOPICAL ONE (06:04)
[2018-08-16] MEDS ORDERED: Heparin/NS PF Inj 500 ML ONE (06:04)
[2018-08-16] MEDS ORDERED: Bupivacaine PF 0.5% Inj 10 ML Vial ONE (06:04)
[2018-08-16] MEDS ORDERED: Chlorhexidine Gluconate 2% 1 Pack (2 Cloths) TOPICAL ONE (06:27)
[2018-08-16] MEDS ORDERED: Metoprolol Tartrate 25 MG Tablet PO ONE (06:27)
[2018-08-16] MEDS ORDERED: Insulin NovoLIN Regular Correctional Sugar Inj SQ ONE (06:27)
[2018-08-16] MEDS ORDERED: ceFAZolin 1 GM Premix Inj 2 GM/100 ML PIGGYBACK IV.SIG ONE (06:48)
[2018-08-16] MEDS ORDERED: Sodium Chlor 0.9% Inj 500 ML IV.SIG SCH ×2 (07:00→13:00)
--- NOTE | 2018-08-16 07:24 | P.PNVS ---
- Pre-operative Note Planned Procedure: R CEA Interval History: Pt has been feeling well; no changes in his health that would preclude OR. Labs: Hct 38 plt 192 INR 1.0 cr 1.8 UA negative Blood: T&S Imaging: CTA (PIEDRA) reviewed: L ICA occluded; R ICA 90% stenosis Orders: NPO Ancef 2g IV OCTOR Post-operative Destination: CVICU Operative site marked: Yes Consent: Informed consent has been obtained from Red Lord. I have explained the procedure in detail and discussed the risks, benefits, and potential complications. All questions have been answered.
--- NOTE | 2018-08-16 10:13 | P.OP ---
- Preoperative Diagnosis (1) Carotid stenosis, right Date of procedure: 08/16/18 Procedure: R CEA Implants: bovine pericardial patch Anesthesia: GETA Surgeon: Asher Sampson MD Night Supervisor: Beverly Knight Estimated blood loss (mL): 200 IV fluids (mL): 1,800 Urine output (mL): 400 Pathology: none sent Operation and Findings: high grade proximal ICA stenosis + EEG changes with clamping, resolved with shunt awoke neuro intact
[2018-08-16] MEDS ORDERED: Bisacodyl 10 MG Supp RECTAL PRN (10:14)
[2018-08-16] MEDS ORDERED: fentaNYL Citrate Inj 100 MCG/2 ML Ampul ONE (10:38)
--- NOTE | 2018-08-16 10:44 | MP ---
cc: Asher Sampson MD DATE OF OPERATION: 08/16/2018 PREOPERATIVE DIAGNOSIS: High-grade asymptomatic right carotid stenosis. POSTOPERATIVE DIAGNOSIS: High-grade asymptomatic right carotid stenosis. PROCEDURE PERFORMED: Right carotid endarterectomy. ATTENDING SURGEON: Asher Sampson MD. SLIP CASTER SURGEON: Beverly Knight. ANESTHESIA: General. INDICATIONS: Mr. Lord is a 73-year-old gentleman with a left carotid occlusion and a 90% right carotid stenosis. He was taken to the operating room for an elective endarterectomy. Intraoperatively, he had EEG changes with clamping of the carotid artery that resolved with shunting. After the successful carotid endarterectomy, he awoke, neurologically intact. DESCRIPTION OF PROCEDURE: Informed consent was obtained. The patient was taken to the operating room and placed supine on the operating table. An appropriate timeout was taken to assure the patient's identity, operative site and planned procedure. The administration of 2 grams of Ancef was initiated prior to skin incision and will be discontinued after single preoperative dose. Everyone in the room agreed with timeout and we proceeded. His right neck was prepped and draped. Incision made along the anterior border of the sternocleidomastoid, carried down through subcutaneous tissue with electrocautery. The facial vein was divided between silk ligatures and the common carotid artery, internal carotid artery, superior thyroid artery and the external carotid artery were all dissected free. The patient was systemically heparinized and throughout the remainder of the case, heparin boluses were administered to maintain ACT greater than 250. Distal and proximal control of the carotid artery were obtained with profunda clamps and a longitudinal arteriotomy was made with an 11-blade, extended with [place] scissors. EEG changes mandated placement of a Peterson-Inahara shunt. The distal end and the proximal end of the shunt was confirmed to be open and the EEG changes resolved. The artery was endarterectomized without difficulty. Tacking sutures used to tack down the distal plaque. The bovine pericardium was brought up on the field and sewn with running 5-0 Prolene suture. At the completion, it was flushed and noted to be hemostatic. The shunt was removed prior to completing the patch and the carotid artery was then released. It was then unclamped and hemostasis achieved in the patch. There was nice Doppler signals in the ICA and ECA and no EEG changes. The wound was irrigated, infiltrated with Marcaine and closed with 2-0 Polysorb, 3-0 Polysorb and 4-0 Monocryl. Sponge and needle counts were correct at the end of the case. I was present and scrubbed for the entire procedure. MD CYNTHIA Taylor/lester , 10:19 AM , 10:26 AM [email or web address]
--- NOTE | 2018-08-16 11:49 | P.CONCC ---
History of Present Illness Service: Critical care medicine Consult date: 08/16/18 Requesting Physician: Asher Sampson Reason for Consult: Critical care management Primary Care Provider: No Primary Care Physician Chief Complaint: No complaints. Status post right carotid endarterectomy History of Present Illness: This is a 73-year-old male. Date of admission 08/16/2018. Date of consultation 08/16/2018. Past medical history includes hard of hearing, post polio syndrome, COPD, diabetes mellitus, essential hypertension, hyperlipidemia , congestive heart failure with a normal ejection fraction, coronary disease status post CABG x4, peripheral neuropathy. Patient quit tobacco 20 years ago with [id number] history. Patient presents to [facility] for elective right carotid enterectomy. Patient received imaging is quite which revealed total occlusion of the left carotid artery with 90% stenosis of the right carotid artery. Patient was taken back to the OR today. Patient received 2 g of cefazolin intraoperatively. Received 1800 cc crystalloid. EBL 200 cc. 4 cc urine output. There were positive EEG changes per note that resolve clamping. Awoke neurologically intact. Patient is currently seen in room 444. Currently resting in bed in no acute distress. Review of Systems Constitutional: Denies anorexia, Denies body ache(s), Denies chills Eyes: Denies blind spots, Denies blurry vision Ears, Nose, Mouth, and Throat: Reports abnormal hearing, Reports hearing loss, Denies change in voice, Denies poor balance Cardiovascular: Denies chest pain, Denies chest pain at rest, Denies shortness of breath, Denies shortness of breath with activity Respiratory: Denies chest congestion, Denies cough, Denies shortness of breath, Denies shortness of breath with activity Gastrointestinal: Denies abdominal pain, Denies nausea, Denies vomiting Genitourinary: Denies urinary frequency, Denies urinary hesitancy Musculoskeletal: Denies abnormal walking, Denies back pain Skin/Breast: Denies acne, Denies bleeding lesions, Denies non-healing lesions Neurologic: Denies abnormal hearing, Denies abnormal movements Psychiatric: Denies abnormal sleep pattern, Denies anxiety, Denies confusion, Denies depression Endocrine: Denies cold intolerance, Denies excessive sweating Hematologic/Lymphatic: Denies easy bleeding PMFSH - History History Provided By: Patient - Medical History Medical History: Medical History (Last Updated 08/16/18 @ 11:37 by Von Weiss MD) COPD (chronic obstructive pulmonary disease) Diabetes mellitus Essential hypertension Hard of hearing History of COPD History of gastroesophageal reflux (GERD) History of heart attack Hyperlipidemia - Surgical History Surgical History: Surgical History (Last Updated 08/16/18 @ 11:38 by Von Weiss MD) AICD (automatic cardioverter/defibrillator) present History of ankle surgery History of coronary artery bypass graft S/P tonsillectomy and adenoidectomy - Family History Family History: Family History (Last Updated 08/16/18 @ 11:38 by Von Weiss MD) Other Family history unobtainable due to patient's condition - Tobacco History Second Hand Smoke Exposure: No Smoking Status: Former smoker - Alcohol History How Often Do You Have a Drink Containing Alcohol: 2 to 4 times a month - Substance Use History Substance History: No History of Abuse - Travel History Recent Travel in the [place] Within the Last 8 Weeks: No Recent Travel Out of the Country Within the Last 8 Weeks: No Medications and Allergies Active Medications: Active Medications Al Hydroxide/Mg Hydroxide (Milk Of Magnesia Liq) 30 ml PO Q12H PRN PRN Reason: Mild Constipation Aspirin (Ecotrin) 81 mg PO DAILY [facility] Atorvastatin Calcium (Lipitor) 10 mg PO DAILY [facility] Bisacodyl (Dulcolax Supp) 10 mg RECTAL DAILY PRN PRN Reason: SEVERE CONSITIPATION Enoxaparin Sodium (Lovenox Inj) 40 mg SQ Q24H [facility] Hydromorphone HCl (Dilaudid) 2 mg PO Q4H PRN PRN Reason: PAIN SCALE 6 TO 10 Sodium Chloride (Ns Inj) 500 mls @ 30 mls/hr IV.SIG .Q10H [facility] Last Admin: 08/16/18 07:17 Dose: Not Given Lactated Ringer's (Lr 1000 Ml Inj) 1,000 mls @ 30 mls/hr IV.SIG .Q24H [facility] Stop: 08/17/18 06:29 Last Admin: 08/16/18 07:00 Dose: 30 mls/hr Lactulose (Lactulose Liq) 30 ml PO DAILY PRN PRN Reason: SEVERE CONSITIPATION Lisinopril (Prinivil) 40 mg PO DAILY [facility] Morphine Sulfate (Morphine Inj) 2 mg IV.PUSH Q1H PRN PRN Reason: BREAKTHROUGH PAIN Non-Formulary Medication (Bumetanide [Bumetanide]) 0.5 mg PO DAILY [facility] Non-Formulary Medication (Insulin Glargine [Lantus Solostar U-100 Insulin]) 50 unit SQ DAILY [facility] Oxycodone HCl (Roxicodone) 5 mg PO Q4H PRN PRN Reason: PAIN SCALE 1 TO 5 Pregabalin (Lyrica) 150 mg PO DAILY [facility] Senna/Docusate Sodium (Margot-Colace) 1 tab PO BID [facility] Sennosides (Senokot) 17.2 mg PO Q12H PRN PRN Reason: Moderate Constipation Allergies Allergy/AdvReac Type Severity Reaction Status Date / Time ACETONE AdvReac Severe HIVES Uncoded 10/24/12 10:29 Home Medications Medication Instructions Recorded Confirmed Type aspirin [Adult Low Dose Aspirin] 81 mg PO DAILY 08/16/18 08/16/18 History atorvastatin 10 mg PO DAILY 08/16/18 08/16/18 History bumetanide 0.5 mg PO DAILY 08/16/18 08/16/18 History insulin glargine [Lantus Solostar 50 unit SUBCUT DAILY 08/16/18 08/16/18 History U-100 Insulin] lisinopril 40 mg PO DAILY 08/16/18 08/16/18 History pregabalin [Lyrica] 150 mg PO DAILY 08/16/18 08/16/18 History Physical Exam Vital signs: Vital Signs 08/16/18 07:03 08/16/18 10:33 08/16/18 10:34 Temperature 97.5 F L 97.4 F L Pulse Rate 73 74 74 Respiratory Rate 18 12 Blood Pressure 138/69 125/74 Pulse Oximetry 95 99 08/16/18 10:35 08/16/18 11:00 Temperature 97.4 F L Pulse Rate 68 Respiratory Rate 12 12 Blood Pressure 125/72 Pulse Oximetry 97 Intake & Output 08/15/18 08/16/18 08/16/18 18:59 06:59 18:59 Intake Total 1900 / 1900 Output Total 600 / 600 Balance 1300 / 1300 Weight 81.3 kg Intake: IV 100 / 100 Ancef 1 GM Premix Inj 2 gm In 100 / 100 100 ml @ 0 mls/hr IV.SIG .STK- [facility] Rx#:[id number] Anesthesia Amount 1800 / 1800 Output: Estimated Blood Loss 200 / 200 Urine Amount (Catheter) 400 / 400 Indwelling Urethral Catheter 400 / 400 Other: # Voids 1 Weight On Admission 81.3 kg - Constitutional no acute distress - Routine HEENT Exam Head: Present: normocephalic, atraumatic Eye: Present: EOMI, PERRL, normal accommodation ENT: Present: mucous membranes moist - Routine Neck Exam Present: supple, full ROM Comments: Site of right carotid enterectomy is clean dry and intact. No drain in place. - Routine Respiratory Exam Present: CTA bilaterally. Absent: accessory muscle use, rhonchi, wheezes, crackles - Routine Cardiovascular Exam Present: RRR, S1, S2, murmur Comments: 2/6 diastolic murmur apex - Routine Abdominal Exam Present: soft, normoactive bowel sounds. Absent: tenderness - Routine Exam Patient deferred: penile exam, testicular exam, scrotal exam, groin exam, perineal exam - Routine Extremities Exam Present: edema (Trace). Absent: cyanosis, clubbing - Routine Skin Exam Present: intact - Routine Neurological Exam Present: alert, oriented X3, CN II-XII intact, sensory deficit. Absent: motor deficit - Detailed Neurological Exam: Coma Scale Eye Opening: Spontaneous Verbal Response: Oriented Motor Response: Obey commands Eli Coma Scale Total: 15 - Routine Psychiatric Exam Present: normal affect - Urinary Catheter Management Indwelling Urethral Catheter Cath placed during this visit: yes Reason for continuing: Hourly intake/output Insertion date: 08/16/18 Insertion time: 07:55 Septic Shock Reassessment Septic shock perfusion: reassessment completed Assessment and Plan - Assessment and Plan Plan: Neuro/Psych: Peripheral neuropathy Resume pregabalin 150 mg daily/home medication Oxycodone 5 mg p.o. every 4 hours, hydromorphone 1 mg IV every 4 hours and morphine sulfate 2 g IV every 8 hours as needed pain management CV: Postoperative day 0 right carotid endarterectomy Coronary artery disease status post CABG by 4 Chronic diastolic heart failure Essential hypertension Hyperlipidemia Left internal carotid artery occlusion Goal keep systolic blood pressure in the 140s per Dr. Sampson's request. Can use normal saline bolus. Only if that does not work start low-dose phenylephrine drip Patient is on aspirin 81 mg daily. This is been resumed. Patient is on lisinopril 40 mg daily for hypertension. Resume when clinically indicated Patient is on atorvastatin 10 mg daily for dyslipidemia. Resume when clinically indicated On bumetanide 0.5 mg daily for CHF. Resume clinically indicated Resp: History of COPD Prior history of tobaccoism Nasal cannula to maintain saturations greater than equal to 92% Incentive spirometry while awake As needed albuterol aerosols every 2 hours as needed GI: Advance ADA/cardiac diet per vascular surgery Docusate sodium/senna 1 tablet twice daily for bowel regimen : Remove Pedraza catheter Endo: Diabetes mellitus On insulin glargine 50 units daily. Sliding scale insulin Accu-Cheks to maintain euglycemia Renal: Chronic kidney disease Follow-up on BMP in a.m. 08/17 Last creatinine 2017 was 2.8. Heme: Follow-up on CBC in a.m. ID: Received 2 g cefazolin in OR Monitor for signs and symptomatology infection MSK: History of post polio syndrome Out of bed/PT evaluate and treat when appropriate FEN: Replace electrolytes as clinically indicated Access -Right radial arterial line day #1 -Utilize peripheral IV. 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 Care plan discussed all questions answered.
[2018-08-16] MEDS ORDERED: Dextrose 50% in Water 50 ML Vial IV.PUSH PRN (11:51)
[2018-08-16] MEDS ORDERED: Phenylephrine Inj 160 MG in Sodium Chlor 0.9% Inj 484 ML IV.CONT PRN (12:02)
[2018-08-16] MEDS: Insulin NovoLOG Aspart Correctional Sugar Inj SQ SCH ×3 (13:10→22:36)
--- NOTE | 2018-08-16 13:14 | P.PNVS ---
Subjective Post Op Day #: 0 Procedure: R CEA Subjective/Hospital Course: mild headache and mild asymptomatic hypotension otherwise looks great Objective Vital Signs / I&O: Vital Signs 08/16/18 07:03 08/16/18 10:33 08/16/18 10:34 Temperature 97.5 F L 97.4 F L Pulse Rate 73 74 74 Respiratory Rate 18 12 Blood Pressure 138/69 125/74 Pulse Oximetry 95 99 08/16/18 10:35 08/16/18 11:00 Temperature 97.4 F L Pulse Rate 68 Respiratory Rate 12 12 Blood Pressure 125/72 Pulse Oximetry 97 Intake & Output 08/15/18 08/16/18 08/16/18 18:59 06:59 18:59 Intake Total 2250 / 2250 Output Total 600 / 600 Balance 1650 / 1650 Weight 81.3 kg Intake: IV 450 / 450 Heparin/NS PF Inj 500 ML @ 0 250 / 250 mls/hr .ROUTE .STK-[facility] Rx#: [id number] Ofirmev Inj 1,000 mg In 100 ml 100 / 100 @ 0 mls/hr IV.SIG .STK-[facility] Rx#:[id number] Ancef 1 GM Premix Inj 2 gm In 100 / 100 100 ml @ 0 mls/hr IV.SIG .STK- [facility] Rx#:[id number] Anesthesia Amount 1800 / 1800 Output: Estimated Blood Loss 200 / 200 Urine Amount (Catheter) 400 / 400 Indwelling Urethral Catheter 400 / 400 Other: # Voids 1 Weight On Admission 81.3 kg Exam: [place], 5/5 UE/LE strength slight facial asymmetry with smile no deviation in tongue protrusion neck minimally swollen Laboratory Results - last 24 hr 08/16/18 08/16/18 08/16/18 06:54 06:55 06:55 Potassium 4.2 POC Glucose 234 H Blood Type O Positive Blood Type Recheck Required Antibody Screen Negative 08/16/18 13:09 Potassium POC Glucose 331 H Blood Type Blood Type Recheck Antibody Screen Assessment and Plan - Assessment (1) Carotid stenosis, right Code(s): I65.21 - Occlusion and stenosis of right carotid artery Status: Acute - Plan POD#0 s/p R CEA with known contralateral occlusion 1. continue neuro checks 2. getting IVF bolus to keep SBP 140-160; ok to start low dose breana 3. OOB TC later today if feels ok anticipate buckner out and a-line out in the morning, then d/c later tomorrow Discharge Planning: tomorrow (POD#1)
[2018-08-16] MEDS: Morphine Sulfate Inj 2 MG/ML Vial IV.PUSH PRN ×2 (13:18→21:37)
--- NOTE | 2018-08-16 21:43 | ECG ---
Date Performed: 08/16/2018 Time Performed: 06:43:34 PTAGE: 73 years EKG: Sinus rhythm POSSIBLE INFERIOR MYOCARDIAL INFARCTION , PROBABLY OLD MODERATE T-WAVE ABNORMALITY, CONSIDER LATERAL ISCHEMIA ABNORMAL ECG PREVIOUS TRACING : 04/05/2017 15.34 Since the previous tracing, no significant change noted DOCTOR: Cameron Raglnad Interpretating Date/Time 08/16/2018 21:42:42
[2018-08-16] MEDS: Senna/Docusate Sodium 8.6/50 MG Tablet PO SCH (22:37)
[2018-08-17] MEDS: Morphine Sulfate Inj 2 MG/ML Vial IV.PUSH PRN ×4 (02:21→10:43)
[2018-08-17 05:07] LABS: Hematocrit 30.1 % (39.0-51.0); Hemoglobin 10.4 gm/dL (13.0-17.0); Mean Corpuscular HGB Conc 34.4 % (32.0-36.0); Mean Corpuscular Hemoglobin 30.1 pg (27.0-34.0); Mean Corpuscular Volume 87.4 fL (80.0-100.0); Mean Platelet Volume 9.8 fL (7.0-11.0); Platelet Count 134 th/mm3 (150-450); Red Blood Count 3.44 mil/mm3 (4.50-5.90); White Blood Count 7.9 th/mm3 (4.0-11.0)
[2018-08-17 05:26] LABS: Calcium 7.9 mg/dL (8.5-10.1); Carbon Dioxide 27.8 meq/L (21.0-32.0); Potassium 4.3 meq/L (3.5-5.1)
--- NOTE | 2018-08-17 06:58 | P.PNCC ---
Subjective Subjective Remarks/Hospital Course: This is a 73-year-old male. Date of admission 08/16/2018. Date of consultation 08/16/2018. Past medical history includes hard of hearing, post polio syndrome, COPD, diabetes mellitus, essential hypertension, hyperlipidemia , congestive heart failure with a normal ejection fraction, coronary disease status post CABG x4, peripheral neuropathy. Patient quit tobacco 20 years ago with [id number] history. Patient presents to [facility] for elective right carotid enterectomy. Patient received imaging is quite which revealed total occlusion of the left carotid artery with 90% stenosis of the right carotid artery. Patient was taken back to the OR today. Patient received 2 g of cefazolin intraoperatively. Received 1800 cc crystalloid. EBL 200 cc. 4 cc urine output. There were positive EEG changes per note that resolve clamping. Awoke neurologically intact. Patient is currently seen in room 444. Currently resting in bed in no acute distress. SUBJECTIVE: 08/17: Complaining of pain at surgical site. Denies dyspnea. Denies dysphasia. Blood pressure better controlled. Not on Nico-Synephrine. Objective Vital Signs / I&O: Vital Signs 08/16/18 07:03 08/16/18 10:33 08/16/18 10:34 Temperature 97.5 F L 97.4 F L Pulse Rate 73 74 74 Respiratory Rate 18 12 Blood Pressure 138/69 125/74 Pulse Oximetry 95 99 08/16/18 10:35 08/16/18 11:00 08/16/18 13:17 Temperature 97.4 F L Pulse Rate 68 Respiratory Rate 12 12 15 Blood Pressure 125/72 Pulse Oximetry 97 08/16/18 13:18 08/16/18 15:00 08/16/18 16:01 Temperature 97.9 F Pulse Rate 71 Respiratory Rate 15 15 Blood Pressure 130/68 Pulse Oximetry 97 97 08/16/18 18:19 08/16/18 19:00 08/16/18 20:41 Temperature 97.3 F L Pulse Rate 75 Respiratory Rate 19 16 Blood Pressure 109/63 Pulse Oximetry 95 95 08/16/18 23:00 08/17/18 03:00 Temperature 97.5 F L 97.5 F L Pulse Rate 65 61 Respiratory Rate 16 20 Blood Pressure 123/71 134/70 Pulse Oximetry 99 99 Intake & Output 08/16/18 08/16/1808/17/18 06:59 18:59 06:59 Intake Total 3600 / 3600 480 / 480 Output Total 1300 / 1300 1650 / 1650 Balance 2300 / 2300 -1170 / -1170 Weight 81.3 kg 85.5 kg Intake: IV 450 / 450 Heparin/NS PF Inj 500 ML @ 0 250 / 250 mls/hr .ROUTE .STK-[facility] Rx#: [id number] Ofirmev Inj 1,000 mg In 100 ml 100 / 100 @ 0 mls/hr IV.SIG .STK-[facility] Rx#:[id number] Ancef 1 GM Premix Inj 2 gm In 100 / 100 100 ml @ 0 mls/hr IV.SIG .STK- [facility] Rx#:[id number] Oral 850 / 850 480 / 480 Anesthesia Amount 1800 / 1800 Other 500 / 500 Output: Estimated Blood Loss 200 / 200 Urine Amount (Catheter) 1100 / 1100 1650 / 1650 Indwelling Urethral Catheter 1100 / 1100 1650 / 1650 Other: # Voids 1 Weight On Admission 81.3 kg Result Diagrams: 08/17/18 04:00 08/17/18 04:00 Objective Remarks: GENERAL: 73-year-old male currently resting in bed in no acute distress on room air SKIN: Warm and dry. HEAD: Atraumatic. Normocephalic. EYES: Pupils equal and round. No scleral icterus. No injection or drainage. ENT: No nasal bleeding or discharge. Mucous membranes pink and moist. NECK: Trachea midline. No JVD. Right carotid enterectomy site is clean dry and intact without erythema. Some ecchymosis noted around. No hematoma CARDIOVASCULAR: Regular rate and rhythm. S1, S2. No S4. RESPIRATORY: No accessory muscle use. Clear to auscultation. Breath sounds equal bilaterally. GASTROINTESTINAL: Abdomen soft, non-tender, nondistended. Hepatic and splenic margins not palpable. MUSCULOSKELETAL: Extremities without clubbing, cyanosis, or edema. No obvious deformities. NEUROLOGICAL: Awake and alert. No obvious cranial nerve deficits. Motor grossly within normal limits. Five out of 5 muscle strength in the arms and legs. Normal speech. PSYCHIATRIC: Appropriate mood and affect; insight and judgment normal. Assessment and Plan - Assessment and Plan Plan: Neuro/Psych: Peripheral neuropathy Resume pregabalin 150 mg daily/home medication Oxycodone 5 mg p.o. every 4 hours, hydromorphone 1 mg IV every 4 hours and morphine sulfate 2 g IV every 8 hours as needed pain management CV: Postoperative day 1 right carotid endarterectomy Coronary artery disease status post CABG by 4 Chronic diastolic heart failure Essential hypertension Hyperlipidemia Left internal carotid artery occlusion Goal keep systolic blood pressure in the 140s per Dr. Sampson's request. Can use normal saline bolus. Only if that does not work start low-dose phenylephrine drip Patient is on aspirin 81 mg daily. This is been resumed. Patient is on lisinopril 40 mg daily for hypertension. Patient is on atorvastatin 10 mg daily for dyslipidemia. On bumetanide 0.5 mg daily for CHF. Resp: History of COPD Prior history of tobaccoism Nasal cannula to maintain saturations greater than equal to 92%. Currently on room air Incentive spirometry while awake As needed albuterol aerosols every 2 hours as needed GI: Advance ADA/cardiac diet per vascular surgery Docusate sodium/senna 1 tablet twice daily for bowel regimen : Remove Pedraza catheter Endo: Diabetes mellitus On insulin glargine 50 units daily. Sliding scale insulin Accu-Cheks to maintain euglycemia Renal: Chronic kidney disease Follow-up on BMP in a.m. 08/17 Last creatinine 2017 was 2.8. Currently 1.2 Heme: Normocytic anemia Thrombocytopenia Follow-up on CBC in a.m. ID: Received 2 g cefazolin in OR Monitor for signs and symptomatology infection MSK: History of post polio syndrome Out of bed/PT evaluate and treat when appropriate FEN: Replace electrolytes as clinically indicated Access -Right radial arterial line day #2 -Utilize peripheral IV. 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 CARE plan discussed and all questions answered.
--- NOTE | 2018-08-17 08:23 | P.PNVS ---
Subjective Post Op Day #: 1 Procedure: R CEA Subjective/Hospital Course: throat sore neuro intact looks great overall Objective Vital Signs / I&O: Vital Signs 08/16/18 10:33 08/16/18 10:34 08/16/18 10:35 Temperature 97.4 F L Pulse Rate 74 74 Respiratory Rate 12 12 Blood Pressure 125/74 Pulse Oximetry 99 08/16/18 11:00 08/16/18 13:17 08/16/18 13:18 Temperature 97.4 F L Pulse Rate 68 Respiratory Rate 12 15 15 Blood Pressure 125/72 Pulse Oximetry 97 08/16/18 15:00 08/16/18 16:01 08/16/18 18:19 Temperature 97.9 F Pulse Rate 71 Respiratory Rate 15 19 Blood Pressure 130/68 Pulse Oximetry 97 97 08/16/18 19:00 08/16/18 20:41 08/16/18 23:00 Temperature 97.3 F L 97.5 F L Pulse Rate 75 65 Respiratory Rate 16 16 Blood Pressure 109/63 123/71 Pulse Oximetry 95 95 99 08/17/18 03:00 08/17/18 07:00 08/17/18 08:00 Temperature 97.5 F L 98.1 F Pulse Rate 61 64 Respiratory Rate 20 18 Blood Pressure 134/70 143/55 H Pulse Oximetry 99 96 96 08/17/18 08:16 Temperature Pulse Rate Respiratory Rate 17 Blood Pressure Pulse Oximetry Intake & Output 08/16/18 08/17/18 08/17/18 18:59 06:59 18:59 Intake Total 3600 / 3600 480 / 480 Output Total 1300 / 1300 1650 / 1650 Balance 2300 / 2300 -1170 / -1170 Weight 85.5 kg Intake: IV 450 / 450 Heparin/NS PF Inj 500 ML @ 0 250 / 250 mls/hr .ROUTE .STK-[facility] Rx#: [id number] Ofirmev Inj 1,000 mg In 100 ml 100 / 100 @ 0 mls/hr IV.SIG .STK-[facility] Rx#:[id number] Ancef 1 GM Premix Inj 2 gm In 100 / 100 100 ml @ 0 mls/hr IV.SIG .STK- [facility] Rx#:[id number] Oral 850 / 850 480 / 480 Anesthesia Amount 1800 / 1800 Other 500 / 500 Output: Estimated Blood Loss 200 / 200 Urine Amount (Catheter) 1100 / 1099 1650 / 1650 Indwelling Urethral Catheter 1099 1650 / 1650 Other: # Voids 1 Exam: sitting in chair feels good R neck ecchymoses CN intact Laboratory Results - last 24 hr 08/16/1818 08/16/18 13:09 17:46 21:46 WBC RBC Hgb Hct MCV MCH MCHC RDW Plt Count MPV Sodium Potassium Chloride Carbon Dioxide Anion Gap BUN Creatinine Estimated GFR POC Glucose 331 H 297 H 205 H Random Glucose Calcium 08/17/18 08/17/18 08/17/18 04:00 04:00 07:29 WBC 7.9 RBC 3.44 L Hgb 10.4 L Hct 30.1 L MCV 87.4 MCH 30.1 MCHC 34.4 RDW 13.0 Plt Count 134 L MPV 9.8 Sodium 139 Potassium 4.3 Chloride 106 Carbon Dioxide 27.8 Anion Gap 5 BUN 28 H Creatinine 1.19 Estimated GFR 60 L POC Glucose 185 H Random Glucose 130 H Calcium 7.9 L Assessment and Plan - Assessment (1) Carotid stenosis, right Code(s): I65.21 - Occlusion and stenosis of right carotid artery Status: Acute - Plan POD#1 s/p R CEA with known contralateral occlusion 1. Pedraza out 2. D/C a-line 3. D/C once voids 4. can go to [facility] Discharge Planning: tomorrow (POD#1)
[2018-08-17] MEDS: Senna/Docusate Sodium 8.6/50 MG Tablet PO SCH ×2 (09:07→21:04)
[2018-08-17] MEDS: Lisinopril 20 MG Tablet PO SCH (09:07)
[2018-08-17] MEDS: Insulin Detemir Inj 1,000 UNIT/10 ML Vial SQ SCH (09:08)
[2018-08-17] MEDS: Insulin NovoLOG Aspart Correctional Sugar Inj SQ SCH ×4 (09:08→21:04)
[2018-08-17] MEDS: Pregabalin 75 MG Capsule PO SCH (09:08)
[2018-08-17] MEDS: Enoxaparin Inj 40 MG/0.4 ML Syringe SQ SCH (09:09)
[2018-08-17 10:10] LABS: Baso % (Auto) 0.4 % (0.0-2.0); Eos # (Auto) 0.1 th/mm3 (0.0-0.4); Eos % (Auto) 0.7 % (0.0-4.0); Hematocrit 31.5 % (39.0-51.0); Hemoglobin 10.7 gm/dL (13.0-17.0); Lymph # (Auto) 1.4 th/mm3 (1.0-4.8); Lymph % (Auto) 12.8 % (9.0-44.0); Mean Corpuscular HGB Conc 33.9 % (32.0-36.0); Mean Corpuscular Hemoglobin 29.7 pg (27.0-34.0); Mean Corpuscular Volume 87.5 fL (80.0-100.0); Mean Platelet Volume 9.8 fL (7.0-11.0); Mono % (Auto) 8.8 % (0.0-8.0); Neut # (Auto) 8.3 th/mm3 (1.8-7.7); Neut % (Auto) 77.3 % (16.0-70.0); Platelet Count 148 th/mm3 (150-450); Red Cell Distribution Width 13.1 % (11.6-17.2); White Blood Count 10.8 th/mm3 (4.0-11.0)
--- NOTE | 2018-08-17 10:11 | P.PNVS ---
Subjective Subjective/Hospital Course: 73/M s/p R CEA POD 1 Nurse reports while in room w/ pt he developed a right sided facial droop w/ unequal pupils Pt reported his headache moved from frontal to the back of his head " like a hammer hit the back of my head" Stroke alert called Objective Vital Signs / I&O: Vital Signs 08/16/18 10:33 08/16/18 10:34 08/16/18 10:35 Temperature 97.4 F L Pulse Rate 74 74 Respiratory Rate 12 12 Blood Pressure 125/74 Pulse Oximetry 99 08/16/18 11:00 08/16/18 13:17 08/16/18 13:18 Temperature 97.4 F L Pulse Rate 68 Respiratory Rate 12 15 15 Blood Pressure 125/72 Pulse Oximetry 97 08/16/18 15:00 08/16/18 16:01 08/16/18 18:19 Temperature 97.9 F Pulse Rate 71 Respiratory Rate 15 19 Blood Pressure 130/68 Pulse Oximetry 97 97 08/16/18 19:00 08/16/18 20:41 08/16/18 23:00 Temperature 97.3 F L 97.5 F L Pulse Rate 75 65 Respiratory Rate 16 16 Blood Pressure 109/63 123/71 Pulse Oximetry 95 95 99 08/17/18 03:00 08/17/18 07:00 08/17/18 08:00 Temperature 97.5 F L 98.1 F Pulse Rate 61 64 Respiratory Rate 20 18 Blood Pressure 134/70 143/55 H Pulse Oximetry 99 96 96 08/17/18 08:16 Temperature Pulse Rate Respiratory Rate 17 Blood Pressure Pulse Oximetry Intake & Output 08/16/18 08/17/18 08/17/18 18:59 06:59 18:59 Intake Total 3600 / 3600 480 / 480 Output Total 1300 / 1300 1650 / 1650 Balance 2300 / 2300 -1170 / -1170 Weight 85.5 kg Intake: IV 450 / 450 Heparin/NS PF Inj 500 ML @ 0 250 / 250 mls/hr .ROUTE .STK-[facility] ONE Rx#: [id number] Ofirmev Inj 1,000 mg In 100 ml 100 / 100 @ 0 mls/hr IV.SIG .STK-[facility] ONE Rx#:[id number] Ancef 1 GM Premix Inj 2 gm In 100 / 100 100 ml @ 0 mls/hr IV.SIG .STK- [facility] ONE Rx#:[id number] Oral 850 / 850 480 / 480 Anesthesia Amount 1800 / 1800 Other 500 / 500 Output: Estimated Blood Loss 200 / 200 Urine Amount (Catheter) 1100 / 1100 1650 / 1650 Indwelling Urethral Catheter 1100 / 1100 1650 / 1650 Other: # Voids 1 Physical Exam: GENERAL: Speech clear/GCS 15/NAD/ SKIN: Warm and dry. R neck incision mild swelling/ecchymosis w/o change EYES: No scleral icterus. No injection or drainage. R-3/L- 4 NECK: Supple, trachea midline. No JVD or lymphadenopathy. CARDIOVASCULAR: Regular rate and rhythm on CM RESPIRATORY: No accessory muscle use. GASTROINTESTINAL: Abdomen soft, non-tender, nondistended. MUSCULOSKELETAL: UE 5/5 LE 5/5 BS 246 Laboratory Results - last 24 hr 12/18 08/16/18 08/16/18 13:09 17:46 21:46 WBC RBC Hgb Hct MCV MCH MCHC RDW Plt Count MPV Sodium Potassium Chloride Carbon Dioxide Anion Gap BUN Creatinine Estimated GFR POC Glucose 331 H 297 H 205 H Random Glucose Calcium 08/17/18 08/17/18 08/17/18 04:00 04:00 07:29 WBC 7.9 RBC 3.44 L Hgb 10.4 L Hct 30.1 L MCV 87.4 MCH 30.1 MCHC 34.4 RDW 13.0 Plt Count 134 L MPV 9.8 Sodium 139 Potassium 4.3 Chloride 106 Carbon Dioxide 27.8 Anion Gap 5 BUN 28 H Creatinine 1.19 Estimated GFR 60 L POC Glucose 185 H Random Glucose 130 H Calcium 7.9 L Assessment and Plan - Assessment (1) Carotid stenosis, right Code(s): I65.21 - Occlusion and stenosis of right carotid artery Status: Acute - Plan POD#1 s/p R CEA Pt developed a R sided facial droop and headache to the back of his head/pupils uneven Stroke alert called BS [address] STAT per stroke alert protocol Discharge Planning: tomorrow (POD#1)
--- NOTE | 2018-08-17 10:19 | CT ---
EXAM DATE: 08/17/2018 10:13 AM EST AGE/SEX: 73 years / Male INDICATIONS: Stroke alert, right facial droop. Carotid endarterectomy yesterday. CLINICAL DATA: This is the patient's initial encounter. Patient reports that signs and symptoms have been present for 1 day and indicates a pain score of 0/10. MEDICAL/SURGICAL HISTORY: Cardiovascular disease. Hypertension. CABG. Carotid endarterectomy. RADIATION DOSE: 43.25 CTDI (mGy) [place] [facility] [place]20[place]. . TECHNIQUE: CT of the head without contrast. Using automated exposure control and adjustment of the mA and/or kV according to patient size, radiation dose was kept as low as reasonably achievable to ob tain optimal diagnostic quality images. DICOM format image data is available electronically for revi ew and comparison. FINDINGS: Cerebrum: The ventricles are normal for age. No evidence of midline shift, mass lesion, hemorrhage or acute infarction. No extraaxial fluid collections are seen. Posterior Fossa: The cerebellum and brainstem are intact. The 4th ventricle is midline. The cerebe llopontine angle is unremarkable. Extracranial: The visualized portion of the orbits is intact. Skull: The calvaria is intact. No evidence of skull fracture. CONCLUSION: 1. Stable exam. 2. No evidence of acute infarct, hemorrhage, mass or edema. Report was called by Dr. Bermudez to Dr. Jimenez at 10:15.] Electronically signed by: Chavez Bermudez MD 08/17/2018 10:18 AM EST
[2018-08-17 10:21] LABS: Activated Partial Thrombo Time 26.2 sec (23.4-31.7); Prothrombin Time 10.2 sec (9.8-11.6)
[2018-08-17 10:35] LABS: Creatine Kinase 199 U/L (39-308)
[2018-08-17 14:12] LABS: Baso % (Auto) 0.3 % (0.0-2.0); Eos # (Auto) 0.1 th/mm3 (0.0-0.4); Eos % (Auto) 1.3 % (0.0-4.0); Hematocrit 33.2 % (39.0-51.0); Hemoglobin 11.2 gm/dL (13.0-17.0); Lymph # (Auto) 1.2 th/mm3 (1.0-4.8); Lymph % (Auto) 12.4 % (9.0-44.0); Mean Corpuscular HGB Conc 33.8 % (32.0-36.0); Mean Corpuscular Hemoglobin 29.9 pg (27.0-34.0); Mean Corpuscular Volume 88.5 fL (80.0-100.0); Mean Platelet Volume 10.2 fL (7.0-11.0); Mono # (Auto) 0.9 th/mm3 (0.0-0.9); Mono % (Auto) 9.2 % (0.0-8.0); Neut # (Auto) 7.7 th/mm3 (1.8-7.7); Neut % (Auto) 76.8 % (16.0-70.0); Platelet Count 154 th/mm3 (150-450); Red Blood Count 3.75 mil/mm3 (4.50-5.90); Red Cell Distribution Width 13.1 % (11.6-17.2)
[2018-08-17 14:30] LABS: Creatine Kinase 225 U/L (39-308)
--- NOTE | 2018-08-17 21:59 | MB ---
cc: Thom Jimenez MD, PhD DATE: 08/17/2018 REASON FOR CONSULTATION: Stroke alert. HISTORY OF PRESENT ILLNESS: Mr. Lord is a 73-year-old man. He is status post right carotid endarterectomy yesterday, was doing well. This morning developed right facial droop. A stroke alert was called. He had no weakness of the arms or legs. His symptoms have since resolved. He has a history of 90% stenosis of the right carotid artery, is now status post right carotid endarterectomy yesterday. He has a history of total occlusion of the left carotid artery. He was not a candidate for TPA given the resolution of symptoms as well as the recent surgery. Attempted doing a CT angiogram and CT perfusion was made to see if there is any evidence for large vessel occlusion. However, the patient refused this study. Since this morning, he has been back to his baseline state with no new deficits. CURRENT MEDICATIONS: 1. Ecotrin 81 mg daily. 2. Lipitor. 3. Bumex. 4. Lovenox 40 mg daily. 5. Dilaudid p.r.n. 6. Insulin hours p.r.n. 7. Lactulose. 8. Prinivil 40 mg daily. 9. Morphine p.r.n. 10. Roxicodone p.r.n. 11. Lyrica 150 mg daily. NEUROLOGIC EXAMINATION: VITAL SIGNS: His blood pressure is 147/80, pulse is 85, respirations 18, temperature 98 degrees. NEUROLOGIC: Higher cortical functions. He is alert and oriented. Speech is normal. Cranial nerves intact. There is no facial droop at the present time. Motor exam: Normal strength and tone in all groups. There is no drift. Fine motor skills normal. Reflexes are symmetric. IMAGING STUDIES: CT scan of the brain done earlier today as part of the stroke alert is normal. LABORATORY DATA: White count is 10,000, hemoglobin 11.2, hematocrit 33%, platelets 154,000. PT 10.2, INR 1, aPTT 26.2. IMPRESSION: Transient right facial weakness. This may have been a left hemisphere TIA from the left carotid occlusion. The episode this morning is definitely not related to the right carotid system. The patient, as mentioned above, is not a TPA candidate due to recent surgery and also complete resolution of symptoms. RECOMMENDATION: The patient was on 81 mg aspirin for the possibility that this may have been a TIA. Suggest increasing aspirin to 325 mg. Thom Jimenez MD, PhD TRAVIS/ct , 08:31 PM , 08:44 PM
[2018-08-18] MEDS: Morphine Sulfate Inj 2 MG/ML Vial IV.PUSH PRN (06:32)
--- NOTE | 2018-08-18 07:31 | P.PNVS ---
Subjective Post Op Day #: 2 Procedure: R CEA Subjective/Hospital Course: stroke alert called yesterday for facial droop completely resolved within minutes and has not returned. head CT negative pt overall doing well except neck pain, poorly controlled with po meds Objective Vital Signs / I&O: Vital Signs 08/17/18 08:00 08/17/18 08:16 08/17/18 09:15 Temperature Pulse Rate Respiratory Rate 17 Blood Pressure Pulse Oximetry 96 97 08/17/18 11:00 08/17/18 12:16 08/17/18 15:00 Temperature 98.3 F 98.8 F Pulse Rate 94 H 85 Respiratory Rate 18 19 18 Blood Pressure 159/77 H 147/80 H Pulse Oximetry 08/17/18 19:00 08/17/18 19:11 08/17/18 20:00 Temperature 98.5 F Pulse Rate 95 H 95 H Respiratory Rate 18 16 Blood Pressure 138/77 Pulse Oximetry 92 L 92 L 08/17/18 21:17 08/17/18 23:00 08/18/18 03:00 Temperature 98.1 F 98.2 F Pulse Rate 82 76 Respiratory Rate 18 18 Blood Pressure 149/69 H 156/75 H Pulse Oximetry 97 92 L 95 Intake & Output 08/17/18 08/18/18 08/18/18 18:59 06:59 18:59 Intake Total 1700 / 1700 480 / 480 Output Total 1300 / 1300 1200 / 1200 Balance 400 / 400 -720 / -720 Weight 80.6 kg Intake: IV 1000 / 1000 LR 1000 mL Inj 1,000 ML @ 30 1000 / 1000 mls/hr IV.SIG .Q24H [facility] Rx#: [id number] Oral 700 / 700 480 / 480 Output: Urine 1300 / 1300 1200 / 1200 Exam: neuro intact mild neck swelling CN intact Laboratory Results - last 24 hr 08/17/18 08/17/18 08/17/18 07:29 09:49 09:50 WBC 10.8 RBC 3.60 L Hgb 10.7 L POC Hgb (Calc) Hct 31.5 L POC Hct MCV 87.5 MCH 29.7 MCHC 33.9 RDW 13.1 Plt Count 148 L MPV 9.8 Neut % (Auto) 77.3 H Lymph % (Auto) 12.8 [place] % (Auto) 8.8 H Eos % (Auto) 0.7 Baso % (Auto) 0.4 Neut # (Auto) 8.3 H Lymph # (Auto) 1.4 [place] # (Auto) 1.0 H Eos # (Auto) 0.1 Baso # (Auto) 0.0 WBC Differential . Differential Comment Auto diff final PT INR APTT Fibrinogen POC Sodium POC Potassium POC Chloride POC BUN POC Creatinine POC Glucose 185 H 257 H Total Creatine Kinase Troponin I 08/17/18 08/17/18 08/17/18 09:50 09:50 09:50 WBC RBC Hgb POC Hgb (Calc) 10.9 L Hct POC Hct 32.0 L MCV MCH MCHC RDW Plt Count MPV Neut % (Auto) Lymph % (Auto) [place] % (Auto) Eos % (Auto) Baso % (Auto) Neut # (Auto) Lymph # (Auto) [place] # (Auto) Eos # (Auto) Baso # (Auto) WBC Differential Differential Comment PT 10.2 INR 1.0 APTT 26.2 Fibrinogen 345 POC Sodium 137 POC Potassium 5.0 POC Chloride 100 L POC BUN 26 H POC Creatinine 1.0 POC Glucose 271 H Total Creatine Kinase 199 Troponin I Less than 0.02 L 08/17/18 08/17/18 08/17/18 12:11 13:28 13:28 WBC 10.0 RBC 3.75 L Hgb 11.2 L POC Hgb (Calc) Hct 33.2 L POC Hct MCV 88.5 MCH 29.9 MCHC 33.8 RDW 13.1 Plt Count 154 MPV 10.2 Neut % (Auto) 76.8 H Lymph % (Auto) 12.4 [place] % (Auto) 9.2 H Eos % (Auto) 1.3 Baso % (Auto) 0.3 Neut # (Auto) 7.7 Lymph # (Auto) 1.2 [place] # (Auto) 0.9 Eos # (Auto) 0.1 Baso # (Auto) 0.0 WBC Differential . Differential Comment Auto diff final PT INR APTT Fibrinogen 370 POC Sodium POC Potassium POC Chloride POC BUN POC Creatinine POC Glucose 277 H Total Creatine Kinase Troponin I 08/17/18 08/17/18 08/17/18 13:28 17:21 20:29 WBC RBC Hgb POC Hgb (Calc) Hct POC Hct MCV MCH MCHC RDW Plt Count MPV Neut % (Auto) Lymph % (Auto) [place] % (Auto) Eos % (Auto) Baso % (Auto) Neut # (Auto) Lymph # (Auto) [place] # (Auto) Eos # (Auto) Baso # (Auto) WBC Differential Differential Comment PT INR APTT Fibrinogen POC Sodium POC Potassium POC Chloride POC BUN POC Creatinine POC Glucose 182 H 211 H Total Creatine Kinase 225 Troponin I Less than 0.02 L Assessment and Plan - Assessment (1) Carotid stenosis, right Code(s): I65.21 - Occlusion and stenosis of right carotid artery Status: Acute - Plan POD#2 s/p R CEA head CT negative post-op 1. Increase pain meds 2. Anticipate d/c today Discharge Planning: tomorrow (POD#1)
--- NOTE | 2018-08-18 07:42 | P.PNCC ---
Subjective Subjective Remarks/Hospital Course: This is a 73-year-old male. Date of admission 08/16/2018. Date of consultation 08/16/2018. Past medical history includes hard of hearing, post polio syndrome, COPD, diabetes mellitus, essential hypertension, hyperlipidemia , congestive heart failure with a normal ejection fraction, coronary disease status post CABG x4, peripheral neuropathy. Patient quit tobacco 20 years ago with [id number] history. Patient presents to [facility] for elective right carotid enterectomy. Patient received imaging is quite which revealed total occlusion of the left carotid artery with 90% stenosis of the right carotid artery. Patient was taken back to the OR today. Patient received 2 g of cefazolin intraoperatively. Received 1800 cc crystalloid. EBL 200 cc. 4 cc urine output. There were positive EEG changes per note that resolve clamping. Awoke neurologically intact. Patient is currently seen in room 444. Currently resting in bed in no acute distress. 08/17: Complaining of pain at surgical site. Denies dyspnea. Denies dysphasia. Blood pressure better controlled. Not on Nico-Synephrine. SUBJECTIVE: 08/18: Stroke alert called yesterday. Negative CT brain. Dr. Jimenez recommend increasing aspirin to 3 and 20 mg daily. This is been done. Complaining of pain at surgical site. Otherwise stable Objective Vital Signs / I&O: Vital Signs 08/17/18 08:00 08/17/18 08:16 08/17/18 09:15 Temperature Pulse Rate Respiratory Rate 17 Blood Pressure Pulse Oximetry 96 97 08/17/18 11:00 08/17/18 12:16 08/17/18 15:00 Temperature 98.3 F 98.8 F Pulse Rate 94 H 85 Respiratory Rate 18 19 18 Blood Pressure 159/77 H 147/80 H Pulse Oximetry 08/17/18 19:00 08/17/18 19:11 08/17/18 20:00 Temperature 98.5 F Pulse Rate 95 H 95 H Respiratory Rate 18 16 Blood Pressure 138/77 Pulse Oximetry 92 L 92 L 08/17/18 21:17 08/17/18 23:00 08/18/18 03:00 Temperature 98.1 F 98.2 F Pulse Rate 82 76 Respiratory Rate 18 18 Blood Pressure 149/69 H 156/75 H Pulse Oximetry 97 92 L 95 Intake & Output 08/17/18 08/18/1808/18/18 18:59 06:59 18:59 Intake Total 1700 / 1700 480 / 480 Output Total 1300 / 1300 1200 / 1200 Balance 400 / 400 -720 / -720 Weight 80.6 kg Intake: IV 1000 / 1000 LR 1000 mL Inj 1,000 ML @ 30 1000 / 1000 mls/hr IV.SIG .Q24H [facility] Rx#: [id number] Oral 700 / 700 480 / 480 Output: Urine 1300 / 1300 1200 / 1200 Result Diagrams: 08/17/18 13:28 08/17/18 04:00 Imaging: Head CT 08/17/18 09:50 CONCLUSION: 1. Stable exam. 2. No evidence of acute infarct, hemorrhage, mass or edema. Report was called by Dr. Bermudez to Dr. Jimenez at 10:15.] Objective Remarks: GENERAL: 73-year-old male currently resting in bed in no acute distress on room air SKIN: Warm and dry. HEAD: Atraumatic. Normocephalic. EYES: Pupils equal and round. No scleral icterus. No injection or drainage. ENT: No nasal bleeding or discharge. Mucous membranes pink and moist. NECK: Trachea midline. No JVD. Right carotid enterectomy site is clean dry and intact without erythema. Some ecchymosis noted around. No hematoma CARDIOVASCULAR: Regular rate and rhythm. S1, S2. No S4. RESPIRATORY: No accessory muscle use. Clear to auscultation. Breath sounds equal bilaterally. GASTROINTESTINAL: Abdomen soft, non-tender, nondistended. Hepatic and splenic margins not palpable. MUSCULOSKELETAL: Extremities without clubbing, cyanosis, or edema. No obvious deformities. NEUROLOGICAL: Awake and alert. No obvious cranial nerve deficits. Motor grossly within normal limits. Five out of 5 muscle strength in the arms and legs. Normal speech. PSYCHIATRIC: Appropriate mood and affect; insight and judgment normal. Assessment and Plan - Assessment and Plan Plan: Neuro/Psych: Peripheral neuropathy Resume pregabalin 150 mg daily/home medication Oxycodone 5 mg p.o. every 4 hours, hydromorphone 2mg IV every 4 hours Pain management per vascular surgery CV: Postoperative day 2 right carotid endarterectomy Coronary artery disease status post CABG by 4 Chronic diastolic heart failure Essential hypertension Hyperlipidemia Left internal carotid artery occlusion Goal keep systolic blood pressure in the 140s per Dr. Sampson's request. Can use normal saline bolus. Only if that does not work start low-dose phenylephrine drip Patient is on aspirin 81 mg daily. Was increased to 3 and 25 mg daily 08/17 Patient is on lisinopril 40 mg daily for hypertension. Patient is on atorvastatin 10 mg daily for dyslipidemia. On bumetanide 0.5 mg daily for CHF. Resp: History of COPD Prior history of tobaccoism Nasal cannula to maintain saturations greater than equal to 92%. Currently on room air Incentive spirometry while awake As needed albuterol aerosols every 2 hours as needed GI: Advance ADA/cardiac diet per vascular surgery Docusate sodium/senna 1 tablet twice daily for bowel regimen : Remove Pedraza catheter Endo: Diabetes mellitus On insulin glargine 50 units daily. Sliding scale insulin Accu-Cheks to maintain euglycemia Renal: Chronic kidney disease Follow-up on BMP in a.m. 08/17 Last creatinine 2017 was 2.8. Currently 1.2 Heme: Normocytic anemia Follow-up on CBC in a.m. ID: Received 2 g cefazolin in OR Monitor for signs and symptomatology infection MSK: History of post polio syndrome Out of bed/PT evaluate and treat when appropriate FEN: Replace electrolytes as clinically indicated Access -Right radial arterial line day #2 discontinued 08/17 -Utilize peripheral IV. Central line if indicated Prophylaxis -GI -not indicated -DVT -enoxaparin Level 2 follow-up
[2018-08-18] MEDS: Pregabalin 75 MG Capsule PO SCH (08:11)
[2018-08-18] MEDS: Lisinopril 20 MG Tablet PO SCH (08:11)
[2018-08-18] MEDS: Enoxaparin Inj 40 MG/0.4 ML Syringe SQ SCH (08:12)
[2018-08-18] MEDS: Insulin NovoLOG Aspart Correctional Sugar Inj SQ SCH (08:12)
[2018-08-18] MEDS: Senna/Docusate Sodium 8.6/50 MG Tablet PO SCH (08:12)
--- NOTE | 2018-08-18 08:27 | P.DS ---
Discharge Summary - Admission Date 08/16/18 10:14 - Admission Diagnosis (1) Carotid stenosis, right - Discharge Date 08/18/18 - Discharge Diagnosis (1) S/P carotid endarterectomy Status: Acute (2) Carotid stenosis, right Status: Acute - Summary Brief History from admission: 73/M with a PMH of asymptomatic carotid artery disease, recent CTA neck indicated L ICA occluded and R ICA 90% stenosis Pt admitted for an elective right carotid enterectomy Procedure: R CEA Significant Findings: GENERAL: Speech clear/GCS 15/NAD/ SKIN: Warm and dry. R neck incision w/ improved swelling/ecchymosis EYES: No scleral icterus. No injection or drainage. R-3/L- 3 NECK: Supple, trachea midline. No JVD or lymphadenopathy. CARDIOVASCULAR: Regular rate and rhythm on CM RESPIRATORY: Resp even and CTA /No accessory muscle use. GASTROINTESTINAL: Abdomen soft, non-tender, nondistended. MUSCULOSKELETAL: UE 5/5 LE 5/5 Abnormal Lab Results 08/17/18 08/17/18 08/17/18 09:49 09:50 09:50 WBC 10.8 RBC 3.60 L Hgb 10.7 L POC Hgb (Calc) Hct 31.5 L POC Hct MCV 87.5 MCH 29.7 MCHC 33.9 RDW 13.1 Plt Count 148 L MPV 9.8 Neut % (Auto) 77.3 H Lymph % (Auto) 12.8 Emery % (Auto) 8.8 H Eos % (Auto) 0.7 Baso % (Auto) 0.4 Neut # (Auto) 8.3 H Lymph # (Auto) 1.4 Emery # (Auto) 1.0 H Eos # (Auto) 0.1 Baso # (Auto) 0.0 WBC Differential . Differential Comment Auto diff final PT 10.2 INR 1.0 APTT 26.2 Fibrinogen 345 POC Sodium POC Potassium POC Chloride POC BUN POC Creatinine POC Glucose 257 H Total Creatine Kinase Troponin I 08/17/18 08/17/18 08/17/18 09:50 09:50 12:11 WBC RBC Hgb POC Hgb (Calc) 10.9 L Hct POC Hct 32.0 L MCV MCH MCHC RDW Plt Count MPV Neut % (Auto) Lymph % (Auto) Emery % (Auto) Eos % (Auto) Baso % (Auto) Neut # (Auto) Lymph # (Auto) Emery # (Auto) Eos # (Auto) Baso # (Auto) WBC Differential Differential Comment PT INR APTT Fibrinogen POC Sodium 137 POC Potassium 5.0 POC Chloride 100 L POC BUN 26 H POC Creatinine 1.0 POC Glucose 271 H 277 H Total Creatine Kinase 199 Troponin I Less than 0.02 L 08/17/18 08/17/18 08/17/18 13:28 13:28 13:28 WBC 10.0 RBC 3.75 L Hgb 11.2 L POC Hgb (Calc) Hct 33.2 L POC Hct MCV 88.5 MCH 29.9 MCHC 33.8 RDW 13.1 Plt Count 154 MPV 10.2 Neut % (Auto) 76.8 H Lymph % (Auto) 12.4 Emery % (Auto) 9.2 H Eos % (Auto) 1.3 Baso % (Auto) 0.3 Neut # (Auto) 7.7 Lymph # (Auto) 1.2 Emery # (Auto) 0.9 Eos # (Auto) 0.1 Baso # (Auto) 0.0 WBC Differential . Differential Comment Auto diff final PT INR APTT Fibrinogen 370 POC Sodium POC Potassium POC Chloride POC BUN POC Creatinine POC Glucose Total Creatine Kinase 225 Troponin I Less than 0.02 L 08/17/18 08/17/18 08/18/18 17:21 20:29 07:35 WBC RBC Hgb POC Hgb (Calc) Hct POC Hct MCV MCH MCHC RDW Plt Count MPV Neut % (Auto) Lymph % (Auto) Emery % (Auto) Eos % (Auto) Baso % (Auto) Neut # (Auto) Lymph # (Auto) Emery # (Auto) Eos # (Auto) Baso # (Auto) WBC Differential Differential Comment PT INR APTT Fibrinogen POC Sodium POC Potassium POC Chloride POC BUN POC Creatinine POC Glucose 182 H 211 H 189 H Total Creatine Kinase Troponin I Hospital Course: 73/M with a PMH of asymptomatic carotid artery disease, recent CTA neck indicated L ICA occluded and R ICA 90% stenosis Pt admitted for an elective right carotid enterectomy POD 1 Pt w/ mild headache, throat soreness (able to swallow and eat w/o difficulty) and mild asymptomatic hypotension, otherwise looked great. Pt Early am Nurse reports while in room w/ pt he developed a right sided facial droop w/ unequal pupils Pt reported his headache moved from frontal to the back of his head " like a hammer hit the back of my head" Stroke alert called, CT brain was negative, symptoms resolved within minutes and pt was w/o any other events POD 2 Pt with improved throat soreness and headache No acute neurological events reported R neck incision with improved swelling Pt neurologically intact w/o any deficits Pt clear for D/C this am Arranged out pt f/u - Discharge Instructions Any questions or concerns: Call [facility] [phone] Discharge Plan - Discharge Disposition Patient Disposition: Discharge Home - Discharge Condition Condition: Good - Discharge Order Discharge Orders: Discharge Order (Routine); Ordered 08/18/18 Ordered By: Virginia Gann - Physicians Team Primary Care Provider: Primary Care Zaida Garcia Attending Provider: Asher Sampson Other Providers: Saul White MD ; Thom Jimenez MD, PhD - Rxs /Orders / Referrals /Forms Prescriptions: New oxycodone-acetaminophen [Percocet] 5-325 mg Tablet 1 tab PO Q4-6H PRN (Reason: Pain) Qty: 20 RF: 0 Continue aspirin [Adult Low Dose Aspirin] 81 mg Tablet,Delayed Release (Dr/Ec) 81 mg PO DAILY atorvastatin 10 mg Tablet 10 mg PO DAILY bumetanide 0.5 mg Tablet 0.5 mg PO DAILY insulin glargine [Lantus Solostar U-100 Insulin] 100 unit/mL (3 mL) Insulin Pen 50 unit SUBCUT DAILY lisinopril 40 mg Tablet 40 mg PO DAILY pregabalin [Lyrica] 150 mg Capsule 150 mg PO DAILY Referrals: Primary Care Zaida Garcia [Primary Care Provider] - See Instructions Asher Sampson MD [Physician] - See Instructions (Your surveillance Carotid Duplex is scheduled on 09/21/18 at 8:30 Your follow up appointment is scheduled on 09/22/18 at 9:00) - Discharge Instructions Patient Printed Instructions: Carotid Endarterectomy (DC), Carotid Artery Disease (GEN) - Post Discharge Care Plan Care Plan Goals: Discharge Care Plan Goals After Vascular Surgery Contact: Please call [phone] if you have any problems or have questions regarding your hospitalization. Directions to Meet Your Goals: 1. Diet: * You may resume a regular diet as you were eating at home before your admission. 2. Activity: * Increase your activity level gradually. * Keep surgical extremities elevated when at rest. This will help limit the swelling, bruising and discomfort normally present after surgery. * Walking is a good form of light exercise. Go for a walk at least 3 times per day. * No heavy lifting (lifting over 10 pounds) for at least 4 weeks from surgery. * Check with your surgeon to ensure when you are cleared for heavy lifting and full-intensity exercising. * Your strength will gradually improve. * No driving or operating motorized vehicles while on prescription pain medications. * No swimming until wounds fully healed. * Return to work when cleared by MD/GER/MAEVE. 3. Bathing: Shower daily. * Gently let soap and water run over your incision and pat dry. Do not scrub the incision/wound. * Don't soak in a bath or submerge your incision in water until your incision is healed and evaluated by your physician at follow-up (usually two weeks). 4. Wound Care: INCISION SITE CARE INSTRUCTIONS: * You may leave your incision open to air. * Keep your incision clean and dry, unless showering. See above. * Moisture near the incision will cause the wound to open. * No lotions, creams, ointments, or powders on incisions until they are well- healed. * If you have glue over the incision(s), allow it to fall off naturally in 1-3 weeks * If present, gilda/sutures will be removed 2-3 weeks after surgery during your follow-up clinic visit. * If present, change dressing/bandage when soaked/soiled as needed. * Observe wound daily, checking for signs and symptoms of infection including: foul odor, drainage from the incision, increased redness, increased pain at incision, or increased swelling. 5. Pain Control: Expect post-operative pain for 1-4 weeks after surgery. Your pain will improve gradually. * You may have been provided with a prescription for pain medication. Please take as directed, and be aware of side effects such as drowsiness, constipation and mild stomach discomfort. Pain pills on an empty stomach can cause nausea , so eat a small amount of food, such as crackers, when taking these pills. * Take [id number]-hwh-[id number] stool softeners (Colace or Senna) with your prescribed pain medication. * Acetaminophen (500mg every 6 hours) or Ibuprofen (400mg every 6 hours) may be used in conjunction with narcotics to relieve pain. DO NOT take more than 4 grams (4000mg) of Tylenol in one day, as this can harm your liver. DO NOT take ibuprofen IF: you have an allergy to non-steroidal anti-inflammatory medications, you are taking Coumadin, you have been told you have kidney problems, or you have a history of gastrointestinal bleeding or ulcers. DO NOT take more than 3.2 grams (3200mg) of ibuprofen in one day. * You may also find relief from using heat packs or pads or ice packs. 6. Bowel Regimen for Constipation: * People who undergo surgery are likely to develop post-operative constipation. Exposure to narcotics and changes in diet, fluid intake, and physical activity are known contributors to constipation. We recommend routine stool softeners and/ or laxatives after surgery for most patients. Start by taking one medication. You can increase as directed to relieve constipation. Stop taking these medications if you develop diarrhea. These medications are available over-the- counter and do not require a prescription: * Colace is a stool softener. We recommend starting at 100mg orally twice per day as needed for soft stools and increase to a maximum of 200mg twice daily as needed. * Senna is a laxative that works by keeping water in the intestine to help stool move along the intestinal tract. Take 1 tablet daily as needed for soft stool and increase to a maximum of 2 tablets twice daily as needed. Take Senna with two full glasses of water each time. * Miralax, Dulcolax and Milk of Magnesia are other dvto-btu-dmuluph laxatives that may be used as needed for post-operative constipation. * Drink 6-8 glasses of water per day. * Consume 15-30g of fiber per day: * Metamucil powder, 1-2 tablespoons 1-2 times/day OR Benefiber powder, 2 tablespoons 4 times/day. * Avoid straining. 7. Follow-Up: Do Not miss your follow-up appointment. Keep up with all your appointments and yearly check ups If you have any of the following symptoms please call [phone] immediately: Excessive swelling of the affected extremity Sudden onset of severe or unusual pain in the affected extremity Pain that gets worse or is not relieved by medication Warmth, redness, or swelling in the skin around the wound Foul drainage from incision Extensive bruising or discoloration Wound that opens up or pulls apart Fever above 101.5F or shaking chills Nausea or vomiting Severe diarrhea or severe constipation Dizziness or fainting Chest pain, shortness of breath, or increased work of breathing Weight gain >10 lbs over 3-4 days Inability to urinate for more than 6 hours Cloudy or foul smelling urine Urge to urinate more often than usual Symptoms to Report to Your Doctor: Temperature 101F or higher Pain uncontrolled by medication Drainage or foul odor from incision Extensive bruising or discoloration Chest pain Shortness of breath Nausea, vomiting or dizziness Call 911: Call 911 right away if you have: Sudden onset of chest pain that is not relieved by medications Shortness of breath
[2018-08-18] MEDS: Insulin Detemir Inj 1,000 UNIT/10 ML Vial SQ SCH (10:33)
--- NOTE | 2018-08-18 10:55 | ECG ---
Date Performed: 08/17/2018 Time Performed: 15:38:34 PTAGE: 73 years EKG: Sinus rhythm Possible inferior infarct - age undetermined Lateral ST-T changes are nonspecific Abnormal ECG PREVIOUS TRACING : 08/16/2018 06.43 No significant change from previous tracing noted. DOCTOR: Hamilton Bey Interpretating Date/Time 08/18/2018 10:54:33
== END 2018-08-18 10:42 | disposition home or self-care (01) ==
LOC: HSDC 05:56 → EDSTATUS 08:00 → HSDI 10:14 → HCVI 10:20
PROVIDERS: ADMIT Surgery; ATTEND Surgery